=== PATIENT | male | born 1945 | race African-American/Black ===

== ENCOUNTER 2016-11-17 17:14 | Emergency (ER) | payer MEDICARE ==
[2016-11-17 17:37] VITALS: BP 144/82
--- NOTE | 2016-11-17 20:38 | ERNOTE ---
Trauma/Assault HPI - General Stated Complaint: FALL-RT KNEE Time Seen by Provider: 11/17/16 20:26 Source: patient Exam Limitations: no limitations - Immun/Allergies/Home Medications Immunizations: IMMUNIZATION HX Immunizations Up to Date Yes History of Influenza Vaccine Yes Hx Pneumococcal Vaccination Yes Allergies/Adverse Reactions: Allergies lisinopril [From Zestril] Adverse Reaction (Mild, Verified 05/22/16 18:21) COUGH Home Medications: HOME MEDICATIONS Atorvastatin Calcium [Lipitor] 40 mg PO HS 09/28/14 [Last Taken Unknown] Blood Sugar Diagnostic, Drum [Accu-Chek Compact] 1 each MC DAILY 09/28/14 [Last Taken Unknown] Calcitriol [Rocaltrol] 0.5 mcg PO DAILY 09/28/14 [Last Taken Unknown] Cholecalciferol (Vitamin D3) [Vitamin D3] 1,000 unit PO DAILY 09/28/14 [Last Taken Unknown] Clonidine HCl [Catapres] 0.2 mg PO BID 09/28/14 [Last Taken Unknown] DULoxetine HCL [Cymbalta] 30 mg PO BID 09/28/14 [Last Taken Unknown] Fexofenadine HCl [Ashia Allergy] 180 mg PO DAILY 09/28/14 [Last Taken Unknown] Gabapentin [Neurontin] 100 mg PO TID 09/28/14 [Last Taken Unknown] Glipizide [Glucotrol] 10 mg PO DAILY 09/28/14 [Last Taken Unknown] Guaifenesin [Mucinex] 600 mg PO BID PRN 09/28/14 [Last Taken Unknown] Losartan Potassium [Cozaar] 100 mg PO DAILY 09/28/14 [Last Taken Unknown] Metoprolol Tartrate [Lopressor] 25 mg PO BID 09/28/14 [Last Taken 10/08/14 0600] Potassium Chloride [Klor-Con M10] 10 meq PO DAILY 09/28/14 [Last Taken Unknown] amLODIPine BESYLATE [Norvasc] 5 mg PO DAILY 09/28/14 [Last Taken Unknown] Insulin Glargine,Hum.rec.anlog [Lantus] 10 units SQ HS 10/08/14 [Last Taken 05/14] Enoxaparin Sodium [Lovenox] 30 mg SC Q24H #3 disp.syrin 10/17/14 [Last Taken Unknown] Sennosides/Docusate Sodium [Senokot-S] 2 tab PO HS #60 tablet 10/17/14 [Last Taken Unknown] hydrALAZINE HCL [Apresoline] 25 mg PO TID 10/17/14 [Last Taken Unknown] oxyCODONE HCL [Oxycontin] 20 mg PO BID #30 tab.sr.12h 10/17/14 [Last Taken Unknown] oxyCODONE HCL/ACETAMINOPHEN [Percocet 5 MG/325 MG] 2 tab PO Q4H PRN #90 tablet 10/17/14 [Last Taken Unknown] HYDROcodone/ACETAMINOPHEN [[place] 5-325] 1 each PO Q4H PRN #30 tablet 07/11/15 [ Last Taken Unknown] Lidocaine HCl [Lidocaine HCl Viscous 2%] 1 appl TP Q3H PRN #200 ml 05/22/16 [ Last Taken Unknown] - History of Present Illness Narrative: attempted to get in the car an slipped and fell on his right knee. Had shooting pains down his leg initially but has resolved Location Occurred: Reports: street Pain Location: Reports: lower extremity - right knee Method of Injury: Reports: fall Severity: moderate Modifying Factors - (Improves): Reports: immobilization Modifying Factors - (Worsens): Reports: movement Loss of Consciousness: Reports: no loss of consciousness Associated Symptoms - Trauma: Reports: denies symptoms Review of Systems - Review of Systems Constitutional: Present: no symptoms reported EYE: Present: no symptoms reported ENT: Present: no symptoms reported Respiratory: Present: no symptoms reported Cardiology: Present: no symptoms reported Gastrointestinal/Abdominal: Present: no symptoms reported Genitourinary: Present: no symptoms reported Musculoskeletal: Present: See HPI. Absent: back pain, neck pain Skin: Present: no symptoms reported Neurological: Absent: numbness, tingling Endocrine: Present: no symptoms reported Hematologic/Lymphatic: Present: no symptoms reported Psych: Present: no symptoms reported - Patient's Past Medical History Patient History - Medical: Anemia, Chronic Pain, Diabetes Type 2 Insulin Dependent, Migraines, Obesity, Renal Failure Patient History - Cardiac/Respiratory: Hypertension Patient History - Cancer: No Hx of Cancer Patient History - Surgical Procedures: Cardiac stent, Total Knee Replacement, Other - Social History Living Situations: home Smoking Status: Current every day smoker Alcohol Use: none Drug Use: none Physical Exam - Physical Exam General Appearance: Present: wd/wn, alert, mild distress Neck: Present: normal inspection, nontender, supple Respiratory: Present: chest nontender Extremity Exam: Present: other - right knee tender laterally, pain with moderate flexion . Absent: joint redness, joint swelling Neurological Exam: Present: alert, oriented, normal mood/affect, no motor/ sensory deficits Skin Exam: Present: normal color, warm/dry Lymphatic Exam: Present: no adenopathy ED Progress - Results and Orders Patient's Lab Results:: I have reviewed the patient's lab results. Results and Orders: Laboratory Tests 11/17/16 11/17/16 20:46 20:46 WBC 6.7 Hgb 10.9 L Hct 34.0 L MCH 31.8 H RDW 14.1 H Plt Count 168 Sodium 144 H Potassium 4.0 Chloride 105 Carbon Dioxide 30.0 Anion Gap 13.0 BUN 73 H D Creatinine 6.73 H Est GFR (Non-Af Amer) 11 L D BUN/Creatinine Ratio 10.8 Random Glucose 168 H Calcium 10.4 - Vital Signs Patient's Vital Signs:: I have reviewed the patient's vital signs. Vital Signs: Vital Signs 11/17/16 17:31 Temperature 36.7 C Pulse Rate 63 Respiratory 18 Rate Blood Pressure 144/82 O2 Sat by Pulse 94 Oximetry - X-Ray X-Ray #1 X-Ray: hip Interpretation: Interp. by me X-ray Comments: Right: no fracture or dislocation X-Ray #2 X-Ray: knee Interpretation: Interp. by me X-ray Comments: Right: TKA without loosening, fracture or dislocation - Progress/Reassessment Chief Complaint: Fall Progress:: Improved Progress Note-Subjective: 11/17/16 22:20 Discussed worsening renal function with patient. Pt. denies any increasing symptoms and states he contnues to have significant urine output multiple times daily. Pt urinated 200-300 mL in a urinal in the ED tonight. He states he will contact his previous carbon setter and get an appointment Departure Clinical Impression: Chronic kidney disease (CKD) stage G4/A1, severely decreased glomerular filtration rate (GFR) between 15-29 mL/min/1.73 square meter and albuminuria creatinine ratio less than 30 mg/g Right knee sprain Qualifiers: Encounter type: initial encounter Involved ligament of knee: lateral collateral ligament Qualified Code(s): S83.421A - Sprain of lateral collateral ligament of right knee, initial encounter Contusion, hip and thigh Qualifiers: Encounter type: initial encounter Laterality: right Qualified Code(s): S70.01XA - Contusion of right hip, initial encounter - Departure Disposition: Home Follow Up Needed Condition: Fair Instructions: Knee Sprain, [id number], Hip Pointer, [id number] Additional Instructions: Take your pain meds as directed. Speak with Dr. Reyes about further pain meds if you need them. May use ice to sore spots 10-15 minutes at a time 3-4 times a day Referrals: Anneliese Reyes MD [Primary Care Provider] -
[2016-11-17 20:48] LABS: Hemoglobin 10.9 gm/dL (13.5-18.0); Mean Cell Volume 99.1 fl (78-100); Mean Corpuscular Hemoglobin 31.8 pg (27-31); Mean Corpuscular Hgb Conc 32.1 g/dl (32-36); Mean Platelet Volume 8.7 fl (6.0-9.5); Neutrophil # 3.9 K/mm3 (1.3-6.0); Platelet Count 168 K/mm3 (150-450); Red Blood Count 3.43 M/mm3 (4.7-6.0); Red Cell Distribution Width 14.1 % (11.5-14.0); White Blood Count 6.7 K/mm3 (4.0-10.5)
[2016-11-17 20:54] LABS: BUN/Creatinine Ratio 10.8 (9.0-21.6); Calcium * 10.4 mg/dL (7.9-10.9); Estimated Creat Clear 8.8
[2016-11-17] MEDS ORDERED: NORMAL SALINE 500 ML IV ONE (22:18)
[2016-11-17] MEDS ORDERED: HYDROcodone/ACETAMINOPHEN 1 EACH TABLET PO ONE ×2 (22:23→22:24)
[2016-11-17] MEDS ORDERED: HYDROcodone/ACETAMINOPHEN 1 EACH TABLET ONE (22:46)
== END 2016-11-17 23:58 | disposition home or self-care (01) ==
LOC: ER 17:14
DX: S70.01XA Contusion of right hip, initial encounter (principal); S83.421A Sprain of lateral collateral ligament of right knee, initial encounter; N18.4 Chronic kidney disease, stage 4 (severe); F17.210 Nicotine dependence, cigarettes, uncomplicated; Z95.5 Presence of coronary angioplasty implant and graft; Z96.659 Presence of unspecified artificial knee joint; W01.0XXA Fall on same level from slipping, tripping and stumbling without subsequent striking against object, initial encounter; Y92.410 Unspecified street and highway as the place of occurrence of the external cause

== ENCOUNTER 2016-12-22 18:15 | Emergency (ER) | payer MEDICARE ==
--- NOTE | 2016-12-22 20:59 | ERNOTE ---
Neuro HPI ER Record Presenting Symptoms: confusion Time Seen by Provider: 12/22/16 20:10 Source: EMS Exam Limitations: clinical condition, dementia Immunizations: IMMUNIZATION HX Immunizations Up to Date Yes History of Influenza Vaccine Yes Hx Pneumococcal Vaccination Yes Allergies/Adverse Reactions: Allergies Allergy/AdvReac Type Severity Reaction Status Date / Time lisinopril [From Zestril] AdvReac Mild COUGH Verified 05/22/16 18:21 Home Medications: HOME MEDICATIONS Atorvastatin Calcium [Lipitor] 40 mg PO HS 09/28/14 [Last Taken Unknown] Blood Sugar Diagnostic, Drum [Accu-Chek Compact] 1 each MC DAILY 09/28/14 [Last Taken Unknown] Calcitriol [Rocaltrol] 0.5 mcg PO DAILY 09/28/14 [Last Taken Unknown] Clonidine HCl [Catapres] 0.2 mg PO BID 09/28/14 [Last Taken Unknown] DULoxetine HCL [Cymbalta] 30 mg PO BID 09/28/14 [Last Taken Unknown] Gabapentin [Neurontin] 300 mg PO TID 09/28/14 [Last Taken Unknown] Glipizide [Glucotrol] 10 mg PO DAILY 09/28/14 [Last Taken Unknown] Losartan Potassium [Cozaar] 100 mg PO DAILY 09/28/14 [Last Taken Unknown] Metoprolol Tartrate [Lopressor] 25 mg PO BID 09/28/14 [Last Taken 10/08/14 0600] Potassium Chloride [Klor-Con M10] 10 meq PO DAILY 09/28/14 [Last Taken Unknown] amLODIPine BESYLATE [Norvasc] 10 mg PO DAILY 09/28/14 [Last Taken Unknown] Insulin Glargine,Hum.rec.anlog [Lantus] 15 units SQ HS 10/08/14 [Last Taken 05/14] Cholecalciferol [Vitamin D] 5,000 unit PO DAILY 12/22/16 [Last Taken Unknown] Hydrochlorothiazide [Hydrodiuril] 25 mg PO DAILY 12/22/16 [Last Taken Unknown] - History of Present Illness Narrative: Pt has been confused today. He called [facility] and staff there were concerned about his welfare due to his confusion and LE was called to do a welfare check. His son responded that he was fine and if not he would call EMS. Soon after that his son called 911 to have him brought to the ED by EMS. Son did not come to the ED Onset: cannot confirm onset Severity: moderate, severe - Character of Deficits Baseline Cognition: Present: alert, oriented x 4 Baseline Gait: Present: uses a cane/walker Review of Systems - Narrative Narrative: Pt confused and cannot give history, family and a neighbor give some hx - Review of Systems Constitutional: Present: decreased activity level Gastrointestinal/Abdominal: Present: eating less, drinking less - Patient's Past Medical History Patient History - Medical: Anemia, Chronic Pain, Diabetes Type 2 Insulin Dependent, Migraines, Obesity, Renal Failure Patient History - Cardiac/Respiratory: Coronary Heart Disease, Hypertension, Hyperlipidemia Patient History - Cancer: No Hx of Cancer Patient History - Surgical Procedures: Cardiac stent, Total Knee Replacement, Other Patient History - Other: None - Social History Living Situations: home Abuse History: No History of abuse Psych History: No pertinent hx Alcohol Use: none Drug Use: none - Immunizations Immunizations Up to Date: Yes Hx Pneumococcal Vaccination: Yes History of Influenza Vaccine: Yes Physical Exam - Physical Exam General Appearance: Present: wd/wn, lethargic Eye Exam: Normal inspection: bilateral Ears, Nose, Throat: Present: normal ENT inspection Neck: Present: normal inspection Respiratory: Present: no respiratory distress, normal breath sounds, no accessory muscle use, lungs clear Cardiovascular/Chest: Present: regular rate, rhythm, no murmur, normal peripheral pulses Gastrointestinal/Abdominal: Present: normal bowel sounds, nontender, nondistended, soft Back Exam: Present: normal inspection, normal range of motion, no vertebral tenderness Extremity Exam: Present: normal inspection, non-tender, no edema, normal range of motion Neurological Exam: Present: disoriented to person, disoriented to time, disoriented to place, disoriented to situation Skin Exam: Present: normal color, warm/dry Dora Coma Scale - Assess Eye Opening: To Voice Motor: Localizes to Pain Verbal: Inappropriate - Total Coma Scale Total: 11 ED Progress - Results and Orders Patient's Lab Results:: I have reviewed the patient's lab results. Results and Orders: Laboratory Tests 12/22/16 12/22/16 12/22/16 19:20 19:20 22:15 WBC 8.5 Hgb 13.2 L Hct 40.5 L Plt Count 227 Sodium 147 H Potassium 4.3 Chloride 108 H Carbon Dioxide 27.9 Anion Gap 15.4 H BUN 86 H Creatinine 8.75 H D Est GFR (Non-Af Amer) 8 L D Random Glucose 158 H Calcium 12.1 H Total Bilirubin 0.5 AST 103 H ALT 44 Alkaline Phosphatase 60 B-Natriuretic Peptide 2023 H Total Protein 8.3 H Albumin 3.5 Urine Color Yellow Urine Appearance Cloudy Urine pH 6.0 Ur Specific [place] 1.020 Urine Protein 100 H Urine Glucose (UA) Negative Urine Ketones Negative Urine Blood 250 H Urine Nitrate Negative Urine Bilirubin Negative Prot Sulfosalicylic Acd 3+ H Urine Urobilinogen Normal Ur Leukocyte Esterase 25 H Urine RBC 0-5 Urine WBC 0-5 Ur Epithelial Cells None seen Urine Bacteria Trace Urine Culture Comments Culture to follow - Vital Signs Patient's Vital Signs:: I have reviewed the patient's vital signs. - CT/Ultrasound CT/Ultrasound Narrative: CT head: diffuse atrophic changes somewhat advanced for age. No acute bleed, infarct or injury - Progress/Reassessment Progress:: Unchanged Progress Note-Subjective: 12/22/16 22:30 Spoke to the patients son trying to get information from him. He states he does not know anything about his dad's medical conditions or what medications he takes. He is unwilling to come to the ED. If we discharge the patient the son states that we can call his number and someone will come and get him. Soon after this call a neighbor showed up and states that she generally takes care of the patient and makes sure he eats and gets his medications. She states he has not eaten in 4 days 12/23/16 01:10 Spoke with hospitalist Nova CLIFFORD and she feels that the patient will most likely need nephrology and that the patient would be better served at a larger facility. 12/23/16 01:[address] Murillo at the [facility] he agrees to admit the patient Departure Clinical Impression: Uremic encephalopathy - Departure Disposition: [facility] Condition: Serious
--- OUTSIDE RECORDS SUMMARY | 2016-12-22 21:10 | XMS REPORT | Continuity of Care Document ---
:1945 Author Organization [facility] ([facility]) [place] [address] Phone [phone] Care Team Providers Name Role Phone Clif Loyola Primary Care Provider [phone] Source Comments This disclosure is being made pursuant to the Care Everywhere program, applicable federal and state laws, and may not contain all informaitonavailable regarding this patient.[facility] ([facility]) Active Allergies and Adverse Reactions Allergen Noted Date Severity Reactions Comments Lisinopril 07/03/2011 OTHER Cough Current Medications Prescription Sig. Disp. Refills Start Date End Date Status amLODIPine 5 mg tablet Take 1 Tab by mouth 30 Tab 11 07/06/2011 Active daily. Indications: Hypertension furosemide 80 mg Take 1 Tab by mouth 2 60 Tab 11 07/06/2011 Active tablet times daily. Indications: Hypertension hydrALAZINE 50 mg Take 1 Tab by mouth 3 90 Tab 11 07/06/2011 Active tablet times daily. Indications: Hypertension metoPROLol 100 mg Take 0.5 Tabs by 60 Tab 11 07/06/2011 Active tablet mouth every 12 hours. Indications: Hypertension Active Problems Problem Noted Date Anemia 07/04/2011 Acute on chronic renal failure 07/03/2011 DM type 2 (diabetes mellitus, type 2) 07/03/2011 Chronic pain 07/03/2011 Essential hypertension 07/03/2011 Benign neoplasm of adrenal gland 01/20/2006 Pain in joint, lower leg 09/04/2003 Knee joint replacement by other means 02/07/2002 Social History Tobacco Use Types Packs/Day Years Used Date Former Smoker Cigarettes Smokeless Tobacco: Current User Chew Comments:quit smoking in the s after 2-3 years Alcohol Use Drinks/Week oz/Week Comments No quite drinking in the Last Filed Vital Signs Vital Sign Reading Time Taken Blood Pressure 177/81 07/06/2011 8:00 AM CDT Pulse 50 07/06/2011 8:00 AM CDT Temperature 37.1 C (98.8 F) 07/06/2011 8:00 AM CDT Respiratory Rate 20 07/06/2011 8:00 AM CDT Height 1.626 m (5' 4") 07/03/2011 7:00 PM CDT Weight 154.45 kg (340 lb 8 oz) 07/05/2011 9:00 PM CDT Body Mass Index 58.42 07/05/2011 9:00 PM CDT Oxygen Saturation 95% 07/06/2011 8:00 AM CDT Plan of Care Health Maintenance Due Date Last Done Comments HCV Screening 1945 Hepatitis B Vaccine (1 of 3 - Primary Series) 1945 Tdap Vaccine 1958 DIABETIC: Cholesterol 1965 Diabetic: Hdl 1965 Diabetic: Ldl 1965 DIABETIC: Microalbumin 1965 DIABETIC: Triglycerides 1965 Td Vaccine 1963 Colonoscopy 11/19/1997 Prostate Cancer Screening 1997 Zoster Vaccine 2007 DIABETIC: Foot Exam 10/20/2011 DIABETIC: Retinal Eye Exam 10/20/2011 DIABETIC: Hemoglobin A1C 01/02/2012 07/04/2011 Pneumococcal Vaccine (1 of 2 - PCV13) 2012 Influenza Vaccine: Seasonal (#1) 06/01/2016 Results from Last 3 Months Not on file
[2016-12-22 21:15] LABS: Hematocrit 40.5 % (42.0-52.0); Hemoglobin 13.2 gm/dL (13.5-18.0); Mean Cell Volume 98.8 fl (78-100); Mean Corpuscular Hemoglobin 32.2 pg (27-31); Mean Corpuscular Hgb Conc 32.6 g/dl (32-36); Mean Platelet Volume 9.4 fl (6.0-9.5); Neutrophil # 6.1 K/mm3 (1.3-6.0); Neutrophil % 71.1 % (42-75.0); Platelet Count 227 K/mm3 (150-450); Red Cell Distribution Width 14.5 % (11.5-14.0); White Blood Count 8.5 K/mm3 (4.0-10.5)
[2016-12-22 21:16] LABS: Albumin * 3.5 gm/dl (3.4-5.0); Anion Gap 15.4 mmol/L (6.8-13.8); BUN/Creatinine Ratio 9.8 (9.0-21.6); Bilirubin, Total 0.5 mg/dL (0.0-1.1); Ca. Corrected For Albumin 12.2 mg/dL (8.4-10.2); Calcium * 12.1 mg/dL (7.9-10.9); Carbon Dioxide 27.9 mmol/L (24-32.6); Potassium 4.3 mmol/L (3.4-4.6); Total Protein 8.3 gm/dL (6.2-8.2)
[2016-12-22 23:35] LABS: Urine Appearance Cloudy; Urine Bilirubin Negative (NEGATIVE); Urine Blood 250 /ul (NEGATIVE); Urine Color Yellow; Urine Ketone Negative (NEGATIVE); Urine Nitrite Negative (NEGATIVE); Urine Protein 100 mg/dL (NEGATIVE); Urine Urobilinogen Normal (NORMAL)
[2016-12-22 23:36] LABS: Urine Bacteria TRACE; Urine RBC 0-5 /hpf (0-5); Urine WBC 0-5 /hpf (0-5)
[2016-12-23 02:21] VITALS: BP 199/117
== END 2016-12-23 02:10 | disposition short-term general hospital (02) ==
LOC: ER 18:15
PROC: 0T9B70Z Drainage of Bladder with Drainage Device, Via Natural or Artificial Opening (ICD-10-PCS; principal; 2016-12-22)
DX: G93.41 Metabolic encephalopathy (principal); N19 Unspecified kidney failure; E11.9 Type 2 diabetes mellitus without complications; Z79.4 Long term (current) use of insulin; E78.5 Hyperlipidemia, unspecified; Z95.5 Presence of coronary angioplasty implant and graft; I10 Essential (primary) hypertension

== ENCOUNTER 2017-01-01 15:09 | Emergency (ER) | payer MEDICARE ==
[2017-01-01] MEDS ORDERED: ONDANSETRON HCL/PF 2 MG/ML VIAL IV ONE (15:33)
[2017-01-01] MEDS ORDERED: NORMAL SALINE 1,000 ML IV ONE (15:33)
[2017-01-01] MEDS ORDERED: ONDANSETRON HCL/PF 2 MG/ML VIAL ONE (15:59)
[2017-01-01 16:03] LABS: Hematocrit 41.7 % (42.0-52.0); Hemoglobin 13.7 gm/dL (13.5-18.0); Mean Cell Volume 97.2 fl (78-100); Mean Corpuscular Hemoglobin 31.9 pg (27-31); Mean Corpuscular Hgb Conc 32.9 g/dl (32-36); Mean Platelet Volume 10.1 fl (6.0-9.5); Neutrophil # 4.3 K/mm3 (1.3-6.0); Neutrophil % 65.9 % (42-75.0); Platelet Count 213 K/mm3 (150-450); Red Blood Count 4.29 M/mm3 (4.7-6.0); Red Cell Distribution Width 14.5 % (11.5-14.0); White Blood Count 6.5 K/mm3 (4.0-10.5)
--- NOTE | 2017-01-01 16:03 | ERNOTE ---
Medical Problem HPI - Narrative Date of Service: 01/01/17 - General Chief Complaint: Nausea/Vomiting Time Seen by Provider: 01/01/17 15:24 Source: patient Exam Limitations: no limitations - Immun/Allergies/Home Medications Immunizations: IMMUNIZATION HX Immunizations Up to Date Yes History of Influenza Vaccine Yes Hx Pneumococcal Vaccination Yes Allergies/Adverse Reactions: Allergies lisinopril [From Zestril] Adverse Reaction (Mild, Verified 01/01/17 15:20) COUGH Home Medications: HOME MEDICATIONS Atorvastatin Calcium [Lipitor] 40 mg PO HS 09/28/14 [Last Taken Unknown] Blood Sugar Diagnostic, Drum [Accu-Chek Compact] 1 each MC DAILY 09/28/14 [Last Taken Unknown] Clonidine HCl [Catapres] 0.2 mg PO BID 09/28/14 [Last Taken Unknown] DULoxetine HCL [Cymbalta] 30 mg PO BID 09/28/14 [Last Taken Unknown] Glipizide [Glucotrol] 10 mg PO DAILY 09/28/14 [Last Taken Unknown] Metoprolol Tartrate [Lopressor] 25 mg PO BID 09/28/14 [Last Taken 10/08/14 0600] amLODIPine BESYLATE [Norvasc] 10 mg PO DAILY 09/28/14 [Last Taken Unknown] Insulin Glargine,Hum.rec.anlog [Lantus] 15 units SQ HS 10/08/14 [Last Taken 05/14] Cholecalciferol [Vitamin D] 5,000 unit PO DAILY 12/22/16 [Last Taken Unknown] Hydrochlorothiazide [Hydrodiuril] 25 mg PO DAILY 12/22/16 [Last Taken Unknown] Ciprofloxacin HCl [Cipro] 250 mg PO BID 01/01/17 [Last Taken Unknown] - History of Present History Narrative: Pt. comes in with c/o suprapubic pain and nausea since he was discharged from [facility] 2 days ago. Pt. was seen and treated for acute renal failure secondary to UTI at [facility] from 12/22. Pt. denies the ability to eat and his BG have been in the 70s although he is able to tolerate oral fluid. Pt. denies any vomiting, diarrhea, constipation, alleviating factors, or aggravating factors. Review of Systems - Review of Systems Constitutional: Present: fatigue, malaise. Absent: fever, chills, weakness EYE: Present: no symptoms reported ENT: Present: no symptoms reported Respiratory: Present: no symptoms reported. Absent: shortness of breath, cough , wheezing Cardiology: Present: no symptoms reported. Absent: chest pain, palpitations, edema Gastrointestinal/Abdominal: Present: nausea, abdominal pain - suprapubic. Absent: vomiting, diarrhea Genitourinary: Present: no symptoms reported Musculoskeletal: Present: no symptoms reported. Absent: back pain, joint pain Skin: Present: no symptoms reported. Absent: rash, change in color Neurological: Present: no symptoms reported. Absent: headache, dizziness/light- headedness, numbness, tingling All Other Systems: All systems neg except as marked - Patient's Past Medical History Patient History - Medical: Anemia, Chronic Pain, Diabetes Type 2 Insulin Dependent, Migraines, Obesity, Renal Failure Patient History - Cardiac/Respiratory: Coronary Heart Disease, Hypertension, Hyperlipidemia Patient History - Cancer: No Hx of Cancer Patient History - Surgical Procedures: Cardiac stent, Total Knee Replacement, Other Patient History - Other: None - Social History Living Situations: home Abuse History: No History of abuse Psych History: No pertinent hx Alcohol Use: none Drug Use: none - Immunizations Immunizations Up to Date: Yes Hx Pneumococcal Vaccination: Yes History of Influenza Vaccine: Yes Physical Exam - Physical Exam General Appearance: Present: wd/wn, alert, no apparent distress Eye Exam: Normal inspection: bilateral, PERRL: bilateral, EOMI: bilateral Ears, Nose, Throat: Present: normal ENT inspection Neck: Present: normal inspection, nontender. Absent: lymphadenopathy (R), lymphadenopathy (L) Respiratory: Present: no respiratory distress, normal breath sounds, no accessory muscle use, chest nontender, lungs clear Cardiovascular/Chest: Present: regular rate, rhythm, no murmur, normal peripheral pulses Gastrointestinal/Abdominal: Present: normal bowel sounds, nondistended, soft, no organomegaly, tenderness - suprapubic Back Exam: Present: normal inspection, no CVA tenderness Extremity Exam: Present: normal inspection, non-tender, normal range of motion, no edema Neurological Exam: Present: alert, oriented, normal mood/affect, no motor/ sensory deficits Skin Exam: Present: normal color, warm/dry, other - excoriation of trach stoma 4 oclock to 7 oclock partial thickness ED Progress - Date and Time Seen: Date and Time: 01/01/17 18:[address] Hollis and she recommends transfer to [facility] for endocrinology, nephrology, and gastroenterology. Discussed case with Dr Sainz at [facility] and she accepts pt. - Results and Orders Patient's Lab Results:: I have reviewed the patient's lab results. - Vital Signs Patient's Vital Signs:: I have reviewed the patient's vital signs. Vital Signs: Vital Signs 01/01/17 15:14 Temperature 35.7 C L Pulse Rate 66 Respiratory 12 Rate Blood Pressure 190/112 O2 Sat by Pulse 99 Oximetry - Progress/Reassessment Chief Complaint: Nausea/Vomiting Departure - Departure Clinical Impression: Chronic kidney disease (CKD) stage G4/A1, severely decreased glomerular filtration rate (GFR) between 15-29 mL/min/1.73 square meter and albuminuria creatinine ratio less than 30 mg/g, Dehydration, Hypoglycemia Acute pancreatitis Qualifiers: Pancreatitis type: unspecified pancreatitis type Acute pancreatitis complication: no infection or necrosis Qualified Code(s): K85.90 - Acute pancreatitis without necrosis or infection, unspecified Disposition: [facility] Condition: Serious
[2017-01-01 16:26] LABS: Albumin * 3.8 gm/dl (3.4-5.0); Anion Gap 19.1 mmol/L (6.8-13.8); BUN/Creatinine Ratio 9.7 (9.0-21.6); Bilirubin, Total 0.5 mg/dL (0.0-1.1); Ca. Corrected For Albumin 10.5 mg/dL (8.4-10.2); Calcium * 10.7 mg/dL (7.9-10.9); Carbon Dioxide 21.8 mmol/L (24-32.6); Potassium 4.9 mmol/L (3.4-4.6); Total Protein 8.3 gm/dL (6.2-8.2)
--- OUTSIDE RECORDS SUMMARY | 2017-01-01 17:02 | XMS REPORT | Continuity of Care Document ---
:1945 Author Organization [facility] ([facility]) [place] [address] Phone [phone] Care Team Providers Name Role Phone Anneliese Reyse Primary Care Provider [phone] Source Comments This disclosure is being made pursuant to the Care Everywhere program, applicable federal and state laws, and may not contain all informaitonavailable regarding this patient.[facility] ([facility]) Active Allergies and Adverse Reactions Allergen Noted Date Severity Reactions Comments Lisinopril 07/03/2011 OTHER Cough Current Medications Prescription Sig. Disp. Refills Start End Status Date Date amLODIPine 10 mg tablet Take 10 mg by Active mouth daily. atorvastatin 40 mg Take 40 mg by Active tablet mouth daily. cloNIDine HCl 0.2 mg Take 0.2 mg by Active tablet mouth 2 times daily. DULoxetine 30 mg XR Take 30 mg by Active capsule mouth 2 times daily. glipiZIDE 10 mg tablet Take 10 mg by Active mouth daily. hydroCHLOROthiazide 25 Take 25 mg by Active mg tablet mouth daily. metoPROLol tartrate 25 Take 25 mg by Active mg tablet mouth 2 times daily. cholecalciferol Take 5,000 Units Active (VITAMIN D3) 5,000 unit by mouth daily. capsule ciprofloxacin HCl 250 Take 1 tablet 2 tablet 0 Active mg tablet (250 mg total) 7 017 by mouth daily for 2 days. amLODIPine 5 mg tablet Take 1 Tab by 30 Tab 11 Discontinued mouth daily. 1 017 Indications: Hypertension furosemide 80 mg tablet Take 1 Tab by 60 Tab 11 Discontinued mouth 2 times 1 017 daily. Indications: Hypertension hydrALAZINE 50 mg Take 1 Tab by 90 Tab 11 Discontinued tablet mouth 3 times 1 017 daily. Indications: Hypertension metoPROLol 100 mg Take 0.5 Tabs by 60 Tab 11 Discontinued tablet mouth every 12 1 017 hours. Indications: Hypertension calcitriol 0.5 mcg Take 0.5 mcg by Discontinued capsule mouth daily. 017 gabapentin 300 mg Take 900 mg by Discontinued capsule mouth 3 times 017 daily. potassium chloride 10 Take 10 mEq by Discontinued mEq XR tablet mouth daily. 017 losartan 100 mg tablet Take 100 mg by Discontinued mouth daily. 017 HYDROcodone-acetaminoph Take 1 tablet by Discontinued en 5-325 mg per tablet mouth every 8 017 hours as needed. Active Problems Problem Noted Date Metabolic encephalopathy 12/24/2016 Hypercalcemia 12/24/2016 Rhabdomyolysis 12/24/2016 Delirium due to medical condition without behavioral disturbance 12/23/2016 Morbid obesity 12/23/2016 Anemia 07/04/2011 Acute on chronic renal failure 07/03/2011 DM type 2 (diabetes mellitus, type 2) 07/03/2011 Chronic pain 07/03/2011 Essential hypertension 07/03/2011 Benign neoplasm of adrenal gland 01/20/2006 Pain in joint, lower leg 09/04/2003 Knee joint replacement by other means 02/07/2002 Most Recent Encounters Date Type Specialty Providers Description 12/30/2016 Pharmacy Visit 12/25/2016 Hospital Encounter Neurology Chris Guzman, Dx: Delirium PHD (Primary Dx) 12/23/2016 - Hospital Encounter General Care Catina Murillo Dx: Delirium due to 12/30/2016 Inpatient - Adult MD Edi medical condition Margaret Stewart without behavioral Maris MD disturbance Tito Partida, (Primary Dx) Social History Tobacco Use Types Packs/Day Years Used Date Former Smoker Cigarettes Smokeless Tobacco: Current User Chew Comments:quit smoking in the 1959's after 2-3 years Alcohol Use Drinks/Week oz/Week Comments No quite drinking in the s Last Filed Vital Signs Vital Sign Reading Time Taken Blood Pressure 148/69 12/30/2016 8:00 AM SALVAGE REPAIRER Pulse 52 12/30/2016 8:00 AM SALVAGE REPAIRER Temperature 35.8 C (96.4 F) 12/30/2016 8:00 AM SALVAGE REPAIRER Respiratory Rate 18 12/30/2016 8:00 AM SALVAGE REPAIRER Height 1.626 m (5' 4") 12/26/2016 3:55 PM SALVAGE REPAIRER Weight 138.3 kg (304 lb 14.3 oz) 12/26/2016 3:55 PM SALVAGE REPAIRER Body Mass Index 52.31 12/26/2016 3:55 PM SALVAGE REPAIRER Oxygen Saturation 97% 12/30/2016 8:00 AM SALVAGE REPAIRER Plan of Care Health Maintenance Due Date [...] (#1) 06/01/2016 Results from Last 3 Months BLOOD GLUCOSE, BEDSIDE (12/30/2016 8:43 AM)Only the most recent of22 resultswithin the time period is included. Component Value Range Glucose, Accu-Chek 100(H) 65-99 mg/dL Specimen Blood, capillary BASIC METABOLIC PANEL W/ CALCIUM (CHEM 8) (12/30/2016 6:41 AM)Only the most recent of7 resultswithin the time period is included. Component Value Range Sodium 140 135-145 mEq/L Potassium 4.4 3.5-5.0 mEq/L Chloride 108(H) 95-107 mEq/L CO2 19(L) 22-29 mEq/L Anion Gap 13 8-18 mEq/L BUN 63(H) 10-20 mg/dL Creatinine 6.3(H)Comment: 0.6-1.2 mg/dL Creatinine switched to enzymatic method on 03/10/2011.GFR equation switched to IDMS-traceable MDRD equation on 03/10/2011. Calculated GFR values are not valid in clinical settings where serum creatinine is changing. Glucose 119(H)Comment: 65-99 mg/dL The Expert Committee on the Diagnosis and Classification of Diabetes has defined impaired fasting glucose as greater than or equal to 100 mg/dL but less than 126 mg/dL.(Diabetes Care 28 (Suppl 1)S41,2005) Calcium 9.4 8.5-10.5 mg/dL Calculated GFR 11(L) >60 mL/min/1.73 m2 Specimen Blood PHOSPHORUS (12/30/2016 6:41 AM)Only the most recent of8 resultswithin the time period is included. Component Value Range Phosphorus 4.3Comment:New reference range installed 08/13/15. 2.5-4.5 mg/dL Specimen Blood [facility] NEUROPSYCHOLOGY CONSULT - COGNITIVE ASSESSMENT (12/28/2016 3:04 PM) Narrative Chris Guzman, PHD 12/28/20163:04 PM NEUROPSYCHOLOGY CONSULT NOTE REASON FOR REQUEST:71 year old male admitted with altered mental status after a new opiate prescription found to be in bed without eating or drinking for 3-4 days, with URMILA on CKD. Improving medically.We believe mental status is now close to baseline and does well with orientation questions and appropriate communication.However, MOCA today was 12.Specifically did very poorly on attention, abstraction, delayed recall.Has previously had a head CT that showed atrophy but no specific neurocognitive diagnosis.Lives with son who is not very reliable. REQUESTED BY:Margaret Luke MD DATE OF SERVICE:12/25/2016 IDENTIFYING INFORMATION Bob Hoang is a 71-year-old, right-handed (+100) man with 8 years of formal education.We evaluated him at [facility]. Testing was started on 12/25/16, and completed today, 12/28/16. BACKGROUND INFORMATION Mr. Hoang is referred for neuropsychological evaluation pursuant to questions about his mental status, and whether he is back to baseline, as per the above summary from Dr. Andrews.Mr. Hoang has a significant medical history and many medical comorbidities.He had impaired mentation coming [facility] for the current hospitalization, but has shown some improvement. Recent MoCA testing was 12 (very impaired), however.He has been alert and oriented. Mr. Hoang has a limited baseline, estimated to be low average (approximately 16th percentile per our testing).He has limited formal schooling.He has a limited socioeconomic status, and, as noted, multiple major medical problems. 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 SUICIDE RISK SCREENING None indicated. IMPRESSIONS Neuropsychological examination indicates moderate to severe impairments in most formal aspects of cognitive functioning.He is reasonably well oriented, conversant, and not confused. However, his performances on tests of memory, reasoning, decision-making, and problem-solving were very impaired. Processing speed was very impaired.He had limited stamina and limited sustained attention.He did not report significant depression.The findings suggest widespread cognitive dysfunction, secondary to a recovering delirium and/or baseline dementia. RECOMMENDATIONS (1)Mr. Hoang is not deemed capable of managing his own daily living activities independently.He needs 24/ assistance.He should not be allowed to make independent decisions about his care and well-being. (2) It appears that the living situation is not optimal, with some questions about the reliability of the son.Close monitoring and supervision from social support services are strongly recommended. (3) Neuropsychological re-evaluation as an outpatient, when his medical condition has stabilized, will help better establish his baseline abilities and address his capacity for independent living. Chris Guzman, PhD, ABPP/Cn Professor MACHINE APPLICATOR CEMENTER TIME, FACE TO FACE (COGNITIVE TESTING) 2 hours NEUROPSYCHOLOGIST TIME (COGNITIVE ASSESSMENT) 2 hours (Record review, interview, interpreting and integrating findings, providing feedback & counseling, and preparing written report) MAGNESIUM (12/26/2016 6:52 AM)Only the most recent of4 resultswithin the time period is included. Component Value Range Magnesium 2.7 1.5-2.9 mg/dL Specimen Blood CREATINE KINASE (12/25/2016 7:24 AM)Only the most recent of3 resultswithin the time period is included. Component Value Range Creatine Kinase 479(H) 39-308 U/L Specimen Blood CBC (COMPLETE BLOOD COUNT) (12/25/2016 7:24 AM) Component Value Range WBC Count 7.2 3.7-10.5 K/MM3 RBC Count 3.43(L) 4.50-6.20 M/MM3 Hemoglobin 11.2(L) 13.2-17.7 g/dL Hematocrit 35(L) 40-52 % MCV (Mean Corpuscular Volume) 101(H) 82-99 FL MCH (Mean Corpuscular Hemoglobin) 33 25-35 PG MCHC (Mean Corpuscular Hemoglobin Concentration) 33 32-36 % Platelet Count 167 150-400 K/MM3 MPV (Mean Platelet Volume) 10.1 9.4-12.3 FL RBC Dist Width-STD 52.3(H) 35.1-43.9 FL RBC Distrib Width 14.4 9.0-14.5 % Nucleated RBC 0 /100 WBC Specimen Whole Blood US RETROPERITONEAL COMPLETE (12/24/2016 4:48 PM) Impressions Impression: 1. Non-obstructive stones in the right upper and lower pole. 2. Right mid pole simple cyst. 3. Otherwise normal renal grayscale ultrasound. --- Final --- Narrative [facility] Department of Radiology Ultrasound Division [address] [place] [address] ULTRASOUND REPORT NAME:BOB HOANG Date of Service: 12/24/2016 MRN NO.: [id number] Date: 12/25/2016 Patient's : 1945 Resident/Tech: [id number] Josesito Guerrero Patient's Age: 71 yearsReferring MD:CATINA ANDREWS Indication: URMILA on CKD, evaluate intrinsic renal disease Acute on chronic renal failure. Technique: Renal and bladder grayscale ultrasound. Findings: Kidney: Two non obstructing stones within the right kidney. One is in the superior pole and the other is in the inferior pole. + + + + + :Structure :Features:Right : Left : + + + + + :Kidney:Present/Absent:Present :Present : + + + + + ::Size (cm) :8.7 x 5.1 x 4.0 :9.7 x 4.5 x 4.8 : + + + + + ::Location:Normal: Normal : + + + + + ::Shape :Normal:Normal: + + + + + :Cortex:Echogenicity:Normal:Normal : + + + + + :Renal Pelvis::No hydronephrosis.:No hydronephrosis.: + + + + + ::: :: + + + + + :Ureters ::Normal. :Normal. : + + + + + + + + + + -+ :Right Kidney:Location:Size (cm):Echogenicity:Characteristics : + + + + + -+ :Lesion 1:right mid to:.8 x .7 x:cyst: : ::lower pole:.8 :: : + + + + + -+ :Lesion 2:right upper pole: :hyperechoic :with posterior : ::: ::shadowing : + + + + + -+ :Lesion 3:right lower pole: :hyperechoic :with posterior : ::: ::shadowing : + + + + + -+ Urinary Bladder: Pt. voided prior to exam. Procedure Note Selvin, Incoming Imaging Results - WedDec 25, 2016 10:52 AM SALVAGE REPAIRER [facility] Department of Radiology Ultrasound Division [address] [place] [address] ULTRASOUND REPORT NAME: BOB HOANG Date of Service: 12/24/2016 MRN NO.: [id number] Review Date: 12/25/2016 Patient's : 1945 Resident/Tech: [id number] Josesito Guerrero Patient's Age: 71 years Referring MD: CATINA ANDREWS Indication: URMILA on CKD, evaluate intrinsic renal disease Acute on chronic renal failure. Technique: Renal and bladder grayscale ultrasound. Findings: Kidney: Two non obstructing stones within the right kidney. One is in the superior pole and the other is in the inferior pole. + + + + + :Structure :Features : Right : Left : + + + + + :Kidney :Present/Absent:Present :Present : + + + + + : :Size (cm) :8.7 x 5.1 x 4.0 :9.7 x 4.5 x 4.8 : + + + + + : :Location :Normal :Normal : + + + + + : :Shape :Normal :Normal : + + + + + :Cortex :Echogenicity :Normal :Normal : + + + + + :Renal Pelvis: :No hydronephrosis.:No hydronephrosis.: + + + + + : : : : : + + + + + :Ureters : :Normal. :Normal. : + + + + + + + + + + -+ :Right Kidney:Location :Size (cm) :Echogenicity:Characteristics : + + + + + -+ :Lesion 1 :right mid to :.8 x .7 x :cyst : : : :lower pole :.8 : : : + + + + + -+ :Lesion 2 :right upper pole: :hyperechoic :with posterior : : : : : :shadowing : + + + + + -+ :Lesion 3 :right lower pole: :hyperechoic :with posterior : : : : : :shadowing : + + + + + -+ Urinary Bladder: Pt. voided prior to exam. IMPRESSION Impression: 1. Non-obstructive stones in the right upper and lower pole. 2. Right mid pole simple cyst. 3. Otherwise normal renal grayscale ultrasound. --- Final --- ALBUMIN (12/24/2016 6:46 AM) Component Value Range Albumin 3.4 3.4-4.8 g/dL Specimen Blood PROTEIN-URINE,RANDOM (12/23/2016 6:29 PM) Component Value Range Total Protein, Urine, Random 240 mg/dL Specimen Urine PROTEIN-URINE,ELECTROPHOR-RAND (12/23/2016 6:29 PM) Component Value Range UPEP, Total Protein 240 mg/dL UPEP, Monoclonal Concentration 0.0 mg/dL UPEP, Path Interpretation See TextComment: A monoclonal protein is not identified by urine protein electrophoresis. The specimen is a random urine. Bindu Nichols M.D., R1 Pathology Resident I have personally reviewed the patient studies and I agree with the above report. Qasim Mcrae M.D, Ph.D., Data Center Architect, Clinical Chemistry Laboratory, [facility] Specimen Urine ABDOMEN AP SUPINE (12/23/2016 11:03 AM) Impressions Impression: 1. Paucity of bowel gas throughout the abdomen and pelvis. No dilated air-filled loops of bowel are visualized. 2. Postoperative changes involving the right kidney. 3. Previous right lateral abdominal wall hernia not well evaluated on this current plain film. Narrative Procedure:ABDOMEN AP SUPINE Clinical Indication: Abdominal pain and hypercalcemia. Please evaluate for obstruction or ileus. Technique: 2 portable supine radiograph(s) of the abdomen. Comparison: External CT abdomen and pelvis 02/25/2006. Findings: Lung bases are clear. There is a paucity of bowel gas throughout the abdomen and pelvis. Surgical clips in the right upper quadrant/postsurgical changes are stable related to the right kidney as seen on prior CT of 2005. Previous right lateral abdominal wall hernia on prior CT not fully evaluated on this current abdominal radiograph. Vascular calcifications in the vas deferens and seminal vesicles. Limited evaluation for free air on these supine views. Degenerative changes throughout the lumbar spine. Procedure Note Selvin, Incoming Imaging Results - WedDec 23, 2016 12:12 PM SALVAGE REPAIRER Procedure: ABDOMEN AP SUPINE Clinical Indication: Abdominal pain and hypercalcemia. Please evaluate for obstruction or ileus. Technique: 2 portable supine radiograph(s) of the abdomen. Comparison: External CT abdomen and pelvis 02/25/2006. Findings: Lung bases are clear. There is a paucity of bowel gas throughout the abdomen and pelvis. Surgical clips in the right upper quadrant/postsurgical changes are stable related to the right kidney as seen on prior CT of 2005. Previous right lateral abdominal wall hernia on prior CT not fully evaluated on this current abdominal radiograph. Vascular calcifications in the vas deferens and seminal vesicles. Limited evaluation for free air on these supine views. Degenerative changes throughout the lumbar spine. IMPRESSION Impression: 1. Paucity of bowel gas throughout the abdomen and pelvis. No dilated air-filled loops of bowel are visualized. 2. Postoperative changes involving the right kidney. 3. Previous right lateral abdominal wall hernia not well evaluated on this current plain film. KAPPA LAMBDA LIGHT CHAIN URINE (12/23/2016 10:39 AM) Component Value Range K/L Albumin, Urine Detected Detected K/L Alpha-1, Urine Detected None Detected K/L Alpha-2, Urine Detected None Detected K/L Beta, Urine Detected None Detected K/L Gamma, Urine Detected None Detected K/L Urine-Protein, Total See NoteComment: 10-140 mg/d Total Jzjrycr=798.9 mg/dL based on random urine. INTERPRETIVE INFORMATION: Total Protein Total urinary protein is determined nephelometrically by adding the albumin and Nicholls and/or Lambda light chains. This value may not agree with the total protein as determined by chemical methods, which characteristically underestimate urinary light chains. K/L Nicholls, Urine 79.90(H) 0.14-2.42 mg/dL K/L Lambda, Urine 13.00(H) 0.02-0.67 mg/dL K/L JANNETTE Interpretation, Urine See NoteComment: Urine JANNETTE shows a polyclonal increase in free kappa and/or free lambda light chains. No monoclonal free light chains (Bence Saunders Protein) are detected. Free Urinary K/L Ratio 6.15Comment: 2.04-10.37 ratio Performed by [employer], [address] [place] [id number] [email or web address], Arvind Casas MD, Lab. Director Hours Collected Random hr Total Volume Random mL K/L Nicholls Excretion/Day, Urine See NoteComment: mg/d Unable to quantitate free light chain excretion per day on a random urine sample. K/L Lambda Excretion/Day, See NoteComment: mg/d Urine Unable to quantitate free light chain excretion per day on a random urine sample. Specimen Urine Narrative Specimen Source: Specimen Start Date: TOTAL PROTEIN (12/23/2016 10:37 AM) Component Value Range Total Protein 7.5 6.0-8.0 g/dL Specimen Blood LACTIC ACID, WHOLE BLOOD ([facility]) (12/23/2016 10:37 AM)Only the most recent of2 resultswithin the time period is included. Component Value Range Lactic Acid, Whole Blood 1.6Comment: 0.5-2.0 mEq/L Glycolate, the principle toxic metabolite of ethylene glycol, can cause artifactual elevation of measured lactate. Specimen Whole Blood CALCIUM, IONIZED ([facility]) (12/23/2016 10:37 AM) Component Value Range Ionized Calcium 5.8(H) 3.8-5.2 mg/dL Specimen Whole Blood VENOUS BLOOD GAS ([facility]) (12/23/2016 10:37 AM) Component Value Range pH, Venous 7.37 7.33-7.43 pCO2, Venous 42 37-50 torr pO2, Venous 38 37-47 torr Base Excess, Venous -1 -2-2 mEq/L Bicarbonate, Venous 24 22-26 mEq/L Total CO2, Venous 25 24-32 mEq/L Temperature, Venous 37.0 Degrees C Specimen Whole Blood SERUM PROTEIN ELECTROPHORESIS (12/23/2016 10:37 AM) Component Value Range SPEP-Total Protein 7.5 6.0-8.0 g/dL SPEP-Albumin 3.6(L) 4.2-5.2 g/dL SPEP-Alpha1 Fraction 0.4 0.3-0.5 g/dL SPEP-Alpha2 Fraction 0.9(H) 0.3-0.6 g/dL SPEP-Beta1 Fraction 0.4 g/dL SPEP-Beta2 Fraction 0.5 g/dL SPEP-Beta Fraction Total 0.9 0.6-1.0 g/dL SPEP-Gamma Fraction 1.7(H) 0.5-1.3 g/dL SPEP-Monoclonal Protein 0.0 g/dL SPEP-Path Interp See TextComment: A monoclonal protein is not identified by serum protein electrophoresis. The alpha 2 fraction is elevated and may represent increased acute phase reactants. Polyclonal hypergammaglobulinemia is also present. Bindu Nichols M.D., R1 Pathology Resident I have personally reviewed the patient studies and I agree with the above report. Qasim Mcrae M.D, Ph.D., Data Center Architect, Clinical Chemistry Laboratory, [facility] Questions can be directed to the Pathology Chemistry resident (pager #[phone]) Specimen Blood ECG - EKG 12 LEAD (12/23/2016 8:43 AM) Component Value Range ECG SEVERITY - ABNORMAL ECG - VENT. RATE 100 bpm RR 600 ms P-R INTERVAL 184 ms QRSD INTERVAL 82 ms QT INTERVAL 344 ms QTC INTERVAL 444 ms P AXIS 74 degrees QRS AXIS -6 degrees T WAVE AXIS 165 degrees REPORT SINUS TACHYCARDIA PROBABLE LVH W/ SECONDARY REPOL ABNORMALITIES CONSIDER RIGHT ATRIAL ENLARGEMENT No prior tracing available for comparison Interpreting Physician: Catina Vallejo MD CHEST - AP/PA (12/23/2016 8:20 AM) Impressions Findings / Impression: Tracheostomy in appropriate position. Otherwise the portable exam is grossly within normal limits. No acute cardiopulmonary or pleural findings. The mild prominence of the cardia mediastinal silhouette is likely from the portable nature of the study. The minimal blunting of the right CP angle is likely from atelectasis. Narrative Procedure: CHEST - AP/PA Technique: Portable AP chest radiograph Comparison: Chest radiograph(s) dated: July 03, 2011. Clinical Indication: Altered mental status. Procedure Note Selvin, Incoming Imaging Results - WedDec 23, 2016 10:46 AM SALVAGE REPAIRER Procedure: CHEST - AP/PA Technique: Portable AP chest radiograph Comparison: Chest radiograph(s) dated: July 03, 2011. Clinical Indication: Altered mental status. IMPRESSION Findings / Impression: Tracheostomy in appropriate position. Otherwise the portable exam is grossly within normal limits. No acute cardiopulmonary or pleural findings. The mild prominence of the cardia mediastinal silhouette is likely from the portable nature of the study. The minimal blunting of the right CP angle is likely from atelectasis. DIFFERENTIAL (12/23/2016 5:03 AM) Component Value Range % Neutrophils-Auto Diff 66.9 % Neutrophils-Auto Diff 6050 1193-4580 /MM3 % Lymphocytes-Auto Diff 22.1 % Lymphocytes-Auto Diff 2000 875-3300 /MM3 % Monocytes-Auto Diff 9.7 % Monocytes-Auto Diff 880(H) 130-860 /MM3 % Eosinophils-Auto Diff 0.9 % Eosinophils-Auto Diff 80 40-390 /MM3 % Basophils 0.1 % Basophils-Auto Diff 10 10-136 /MM3 % Immature Granulocytes-Auto Diff 0.3 % Immature Granulocytes-Auto Diff 30 /MM3 Specimen Whole Blood CBC (COMPLETE BLOOD COUNT) (12/23/2016 5:03 AM) Component Value Range WBC Count 9.1 3.7-10.5 K/MM3 RBC Count 4.01(L) 4.50-6.20 M/MM3 Hemoglobin 12.8(L) 13.2-17.7 g/dL Hematocrit 40 40-52 % MCV (Mean Corpuscular Volume) 99 82-99 FL MCH (Mean Corpuscular Hemoglobin) 32 25-35 PG MCHC (Mean Corpuscular Hemoglobin Concentration) 32 32-36 % Platelet Count 209 150-400 K/MM3 MPV (Mean Platelet Volume) 9.9 9.4-12.3 FL RBC Dist Width-STD 52.3(H) 35.1-43.9 FL RBC Distrib Width 14.6(H) 9.0-14.5 % Nucleated RBC 0 /100 WBC Specimen Whole Blood PARATHYROID HORMONE (12/23/2016 5:03 AM) Component Value Range PTH 39.4 10.0-65.0 pg/mL Specimen Whole Blood ETHANOL VOLATILE PANEL (12/23/2016 5:03 AM) Component Value Range Sodium 144 135-145 mEq/L Glucose 130(H)Comment: 65-99 mg/dL The Expert Committee on the Diagnosis and Classification of Diabetes has defined impaired fasting glucose as greater than or equal to 100 mg/dL but less than 126 mg/dL.(Diabetes Care 28 (Suppl 1)S41,2005) BUN 84(H) 10-20 mg/dL Calculated Osmolality 326(H) 50-300 mOsm/kg Osmolality Gap 2 <15 mOsm/kg Unexplained Osmolality Gap 2Comment: <15 mOsm/kg The osmol gap is the measured plasma osmolality minus the calculated osmolality estimated using sodium, BUN, and glucose. The 'unexplained gap' provides a further correction for the presence of ethano l (if present) in the patient?s plasma. An elevated unexplained osmol gap > 15 can occur due to the presence of ethylene glycol, methanol, isopropanol, propylene glycol (found in activated charcoal and some intravenous medications), acetone, or mannitol. All samples that have an unexplained gap >15 are additionally tested for ethylene glycol by immunoassay.Elevated unexplained gaps can al so be seen in patients withdrawing from heavy ethanol use who have ketoacidosis and/or significant amounts of ethanol metabolites in the plasma. Ethanol 0Comment: mg/dL Reference range: None detected. Ethanol intoxication typically begins in the 50-100 mg/dL range. Critical value: >300 mg/dL. Ethanol values less than 10 mg/dL cannot be distinguished from zero. Osmolality, Plasma 328(H) 280-300 mOsm/kg Specimen Blood THYROID STIMULATING HORMONE (TSH), WITH REFLEX FREE T-4 (12/23/2016 5:03 AM) Component Value Range TSH, Reflex 1.87 0.27-4.20 IU/mL Specimen Blood VITAMIN D, 25-HYDROXY (12/23/2016 5:03 AM) Component Value Range Vitamin D, 25-OH 52Comment: 20-80 ng/mL This assay accurately quantifies the sum of 25-hydroxyvitamin D3 and 25- hydroxyvitamin D2. Endocrine Society, [place] [employer] (IOM), and World Health Organization (WHO) guidelines designate 25-h ydroxyvitamin D plasma concentrations below 20 ng/mL as deficient, based on increased frequency of adverse outcomes (e.g., osteoporotic fractures). 25-Hydroxyvitamin D reference ranges are a controversial topic, with some authorities suggesting optimal concentrations should be 30 ng/mL or higher based on correlations of 25-hydroxyvitamin D plasma concentrations with physiological parameters such as parathyroid hormone or calcium concentrations. However, optimal 25-hydroxyvitamin D concentrations greater than 20 ng/mL may be considered for specific disease conditions. Vitamin D toxicity is uncommon but may be seen at 25-hydroxyvitamin D concentrations greater than 150 ng/mL. Specimen Blood CBC WITH DIFFERENTIAL (12/23/2016 5:03 AM) Specimen Whole Blood Narrative The following orders were created for panel order CBC WITH DIFFERENTIAL. Procedure Abnormality Status --------- ------ CBC (COMPLETE BLOOD COUNT)[[id number]] AbnormalFinal result DIFFERENTIAL[[id number]] AbnormalFinal result Please view results for these tests on the individual orders. CALCIUM (12/23/2016 5:03 AM) Component Value Range Calcium 11.8(H) 8.5-10.5 mg/dL Specimen Blood CHEM 7 PANEL (12/23/2016 5:03 AM) Component Value Range Sodium 144 135-145 mEq/L Chloride 103 95-107 mEq/L Potassium 4.1 3.5-5.0 mEq/L CO2 24 22-29 mEq/L BUN 84(H) 10-20 mg/dL Creatinine 8.5(H)Comment: 0.6-1.2 mg/dL Creatinine switched to enzymatic method on 03/10/2011.GFR equation switched to IDMS-traceable MDRD equation on 03/10/2011. Calculated GFR values are not valid in clinical settings where serum creatinine is changing. Glucose 130(H)Comment: 65-99 mg/dL The Expert Committee on the Diagnosis and Classification of Diabetes has defined impaired fasting glucose as greater than or equal to 100 mg/dL but less than 126 mg/dL.(Diabetes Care 28 (Suppl 1)S41,2005) Anion Gap 17 8-18 mEq/L Calculated GFR 8(L) >60 mL/min/1.73 m2 Specimen Blood DRUGS OF ABUSE - URINE (12/23/2016 5:02 AM) Component Value Range Amphetamines, Urine NegativeComment: Negative Test cut-off: 1000 ng/mL for d-methamphetamine. Benzodiazepine, Urine NegativeComment: Negative Test cut-off:100 ng/mL Cocaine, Urine NegativeComment: Negative Test cut-off:300 ng/mL Opiate, Urine Presumptive Positive(A)Comment: Negative Test cut-off:300 ng/mL for morphine Oxycodone, Urine NegativeComment: Negative Test cut-off:300 ng/mL Amphetamines assay cross-reacts well with amphetamine and methamphetamine, as well as the "associate designer" amphetamines MDMA ("Ecstasy"), MDA, MDEA ("Lina"), and MBDB. Labetalol may also produce false positi ves due to cross-reactivity of a metabolite.The amphetamines assay has little or no cross-reactivity with ephedrine, pseudoephedrine, phentermine, and methylphenidate. Opiates assay has low cross-reac tivity for buprenorphine, fentanyl, meperidine, methadone, oxycodone, and propoxyphene (all have cut-offs greater than 75,000 ng/mL). Please see Laboratory Services Handbook ([email or web address].[email or web address]_ [email or web address].index.html) for more detailed information on assay cross-reactivity. Drug of abuse screening tests are to be used for medical purposes only and not for non-medical purposes (e.g., employee, drapery worker, or forensic testing). Specimen Urine MICROSCOPIC URINALYSIS (12/23/2016 5:02 AM) Component Value Range White Blood Cells, Urine >180(H) 0-5 /HPF Red Blood Cells, Urine >180(H) 0-2 /HPF Squamous Epithelial Cells, Urine 14(H) <=10 /LPF Mucous-Urine Rare None, Rare WBC Clumps-Urine Present(A) /HPF Specimen Urine URINALYSIS WITH REFLEX CULTURE (12/23/2016 5:02 AM) Component Value Range Color, Urine Yellow Straw, Pale Yellow, Yellow, Clear, None Clarity, Urine Cloudy(A) Clear pH, Urine 5.0 <9.0 Spec [place], Urine 1.020 1.000-1.030 Glucose, Urine Negative Negative Blood, Urine 3+(A) Negative Ketones, Urine Negative Negative Protein, Urine 2+(A) Negative Urobilinogen, Urine Normal Normal Bilirubin, Urine Negative Negative Leukocyte Esterase, Urine 3+(A) Negative Nitrite, Urine Negative Negative Specimen Urine URINALYSIS WITH REFLEXED CULTURE AND MICROSCOPIC EXAM (12/23/2016 5:02 AM) Specimen Culture - Urine, Midstream clean catch Narrative The following orders were created for panel order URINALYSIS WITH REFLEXED CULTURE AND MICROSCOPIC EXAM. Procedure Abnormality Status --------- ------ URINALYSIS WITH REFLEX C...[[id number]]AbnormalFinal result MICROSCOPIC URINALYSIS[[id number]] Abnormal Final result URINE CULTURE, REFLEXED[[id number]]Abnormal Final result Please view results for these tests on the individual orders. CALCIUM-URINE,RANDOM (12/23/2016 5:02 AM) Component Value Range Calcium, Urine, Random 5.6 mg/dL Specimen Urine POTASSIUM-URINE,RANDOM (12/23/2016 5:02 AM) Component Value Range Potassium, Urine, Random 65.9 mEq/L Specimen Urine SODIUM-URINE,RANDOM (12/23/2016 5:02 AM) Component Value Range Sodium, Urine, Random 36 mEq/L Specimen Urine CREATININE-URINE, RANDOM (12/23/2016 5:02 AM) Component Value Range Creatinine, Urine, Random 300.4 mg/dL Specimen Urine URINE CULTURE, REFLEXED (12/23/2016 5:02 AM) Component Value Range Quantitative Culture >100,000 CFU/mL Enterococcus faecalis(A)Comment: Synergy for gentamicin when combined with ampicillin or vancomycin Synergy for streptomycin when combined with ampicillin or vancomycin. Specimen Culture - Urine, Midstream clean catch Narrative Identification performed by MALDI-TOF mass spectrometry (MS).The performance characteristics of MALDI-TOF MS were determined by the [facility].It has not been cleared orApproved by the FDA. The FDA has determined that such clearance or approval is not necessary.This test is for clinical purposes. It should not be regarded as investigational or for research.The laboratory is certified under the Clinical Laboratory Improvement Amendments of 1988 (CLIA) as qualified to perform high complexity clinical laboratory testing. Organism Antibiotic Method Susceptibility Enterococcus faecalis AMPICILLIN <=2: Susceptible Enterococcus faecalis GENTAMICIN HIGH LEVEL Susceptible Enterococcus faecalis LEVOFLOXACIN 0.5: Susceptible Enterococcus faecalis NITROFURANTOIN <=16: Susceptible Enterococcus faecalis STREPTOMYCIN HIGH LEVEL Susceptible Enterococcus faecalis VANCOMYCIN 1: Susceptible
[2017-01-01] MEDS ORDERED: DEXTROSE 5%-0.5 NORMAL SALINE 1,000 ML IV PRN (17:05)
[2017-01-01] MEDS ORDERED: hydrALAZINE HCL 20 MG/ML VIAL IV ONE (18:53)
[2017-01-01] MEDS ORDERED: hydrALAZINE HCL 20 MG/ML VIAL ONE (18:56)
[2017-01-01 19:19] VITALS: BP 196/89
[2017-01-01 19:34] LABS: Urine Bilirubin Negative (NEGATIVE); Urine Ketone Negative (NEGATIVE); Urine Nitrite Negative (NEGATIVE); Urine Protein 100 mg/dL (NEGATIVE); Urine Specific Gravity 1.025 SP.GR. (1.005-1.030); Urine Urobilinogen Normal (NORMAL); Urine pH 5.5 pH (5.0-7.0)
[2017-01-01 19:46] LABS: Urine Appearance Clear; Urine Blood 10 /ul (NEGATIVE); Urine Color Yellow
[2017-01-01 19:47] LABS: Urine Bacteria TRACE; Urine RBC 0-5 /hpf (0-5); Urine WBC 0-5 /hpf (0-5)
== END 2017-01-01 19:34 | disposition short-term general hospital (02) ==
LOC: ER 15:09
DX: I12.9 Hypertensive chronic kidney disease with stage 1 through stage 4 chronic kidney disease, or unspecified chronic kidney disease (principal); E86.0 Dehydration; E16.2 Hypoglycemia, unspecified; K85.90 Acute pancreatitis without necrosis or infection, unspecified; E11.22 Type 2 diabetes mellitus with diabetic chronic kidney disease; N18.4 Chronic kidney disease, stage 4 (severe); Z79.4 Long term (current) use of insulin; E78.5 Hyperlipidemia, unspecified

== ENCOUNTER 2017-04-27 13:02 | Emergency (ER) | payer MEDICARE, MEDICAID ==
[2017-04-27 13:47] LABS: Hematocrit 37.8 % (42.0-52.0); Hemoglobin 12.1 gm/dL (13.5-18.0); Mean Cell Volume 97.7 fl (78-100); Mean Corpuscular Hemoglobin 31.3 pg (27-31); Mean Platelet Volume 8.6 fl (6.0-9.5); Neutrophil % 62.7 % (42-75.0); Platelet Count 196 K/mm3 (150-450); Red Blood Count 3.87 M/mm3 (4.7-6.0); Red Cell Distribution Width 15.3 % (11.5-14.0); White Blood Count 6.4 K/mm3 (4.0-10.5)
--- NOTE | 2017-04-27 13:55 | ERNOTE ---
Medical Problem HPI - Narrative Date of Service: 04/27/17 - General Chief Complaint: Altered Mental Status Time Seen by Provider: 04/27/17 13:25 Source: patient, family, RN notes reviewed Exam Limitations: no limitations - Immun/Allergies/Home Medications Immunizations: IMMUNIZATION HX Immunizations Up to Date No: pt unsure History of Influenza Vaccine No Hx Pneumococcal Vaccination No Allergies/Adverse Reactions: Allergies lisinopril [From Zestril] Adverse Reaction (Mild, Verified 01/01/17 15:20) COUGH Home Medications: HOME MEDICATIONS Atorvastatin Calcium [Lipitor] 40 mg PO HS 09/28/14 [Last Taken Unknown] Blood Sugar Diagnostic, Drum [Accu-Chek Compact] 1 each MC DAILY 09/28/14 [Last Taken Unknown] Clonidine HCl [Catapres] 0.2 mg PO BID 09/28/14 [Last Taken Unknown] DULoxetine HCL [Cymbalta] 30 mg PO BID 09/28/14 [Last Taken Unknown] Metoprolol Tartrate [Lopressor] 25 mg PO BID 09/28/14 [Last Taken 10/08/14 0600] amLODIPine BESYLATE [Norvasc] 10 mg PO DAILY 09/28/14 [Last Taken Unknown] glipiZIDE [Glucotrol] 10 mg PO DAILY 09/28/14 [Last Taken Unknown] Insulin Glargine,Hum.rec.anlog [Lantus] 15 units SQ HS 10/08/14 [Last Taken 05/14] Cholecalciferol [Vitamin D] 5,000 unit PO DAILY 12/22/16 [Last Taken Unknown] Tramadol HCl [Rybix Odt] 50 mg PO DAILY 04/27/17 [Last Taken Unknown] - History of Present History Narrative: 71 y/o male brought to the ED by a friend for forgetfulness. The friend called him this morning and reminded him to check his blood sugar. He then called her back less than a minute later and asked her if she had just called him. He has also been noted to be sleeping more than usual during the day for the past 3 days. He was seen at [facility] a week ago and is supposed to be starting dialysis, but he has not been contacted regarding the arrangements yet. Review of Systems - Review of Systems Constitutional: Present: fatigue, decreased activity level. Absent: recent illness, fever, chills EYE: Present: no symptoms reported ENT: Present: no symptoms reported Respiratory: Absent: shortness of breath, cough Cardiology: Absent: chest pain, syncope Gastrointestinal/Abdominal: Absent: vomiting, diarrhea, abdominal pain, eating less, drinking less Genitourinary: Absent: dysuria, hematuria, decreased urinary output Musculoskeletal: Present: no symptoms reported Skin: Present: no symptoms reported Neurological: Absent: dizziness/light-headedness, weakness, numbness, tingling Endocrine: Present: no symptoms reported Hematologic/Lymphatic: Present: no symptoms reported Psych: Present: no symptoms reported - Patient's Past Medical History Patient History - Medical: Anemia, Chronic Pain, Diabetes Type 2 Insulin Dependent, Migraines, Obesity, Renal Failure Patient History - Cardiac/Respiratory: Coronary Heart Disease, Hypertension, Hyperlipidemia Patient History - Cancer: No Hx of Cancer Patient History - Surgical Procedures: Cardiac stent, Total Knee Replacement, Other Patient History - Other: None - Social History Living Situations: home Abuse History: No History of abuse Psych History: Hx of Anxiety, Current tx/ever been on anti-depressants or anti- anxiety meds Smoking Status: Former smoker Alcohol Use: none Drug Use: none - Immunizations Immunizations Up to Date: No - pt unsure Hx Pneumococcal Vaccination: No History of Influenza Vaccine: No Physical Exam - Physical Exam General Appearance: Present: alert, no apparent distress, obese, other - poor hygiene Neck: Present: nontender, other - tracheostomy present Respiratory: Present: no respiratory distress, no accessory muscle use, decreased breath sounds, expiration (prolonged) Cardiovascular/Chest: Present: regular rate, rhythm, no murmur Extremity Exam: Present: normal inspection, normal range of motion Neurological Exam: Present: alert, oriented, normal mood/affect, no motor/ sensory deficits Skin Exam: Present: normal color, warm/dry ED Progress - Results and Orders Patient's Lab Results:: I have reviewed the patient's lab results. - Vital Signs Patient's Vital Signs:: I have reviewed the patient's vital signs. Vital Signs: Vital Signs 04/27/17 13:14 Temperature 36.9 C Pulse Rate 66 Respiratory 16 Rate Blood Pressure 141/80 O2 Sat by Pulse 99 Oximetry - Progress/Reassessment Chief Complaint: Altered Mental Status Progress:: Unchanged Plan - Plan Plan: No acute findings - patient's renal function is actually somewhat better than the last time it was checked. Dozes at times in exam room but easily awakens and is appropriate. Departure - Departure Clinical Impression: Forgetfulness Chronic renal failure Qualifiers: Chronic kidney disease stage: unspecified stage Qualified Code(s): N18.9 - Chronic kidney disease, unspecified Disposition: Home Follow Up Needed Condition: Stable Instructions: Chronic Kidney Disease, [place]ms[place]-og-Sfac Additional Instructions: Continue your routine medications Contact [place] regarding dialysis Return to ER if symptoms worsen Referrals: Anneliese Reyes MD [Primary Care Provider] -
[2017-04-27 13:57] LABS: Urine Bilirubin Negative (NEGATIVE); Urine Blood 25 /ul (NEGATIVE); Urine Ketone Negative (NEGATIVE); Urine Nitrite Negative (NEGATIVE); Urine Protein 30 mg/dL (NEGATIVE); Urine Urobilinogen Normal (NORMAL)
[2017-04-27 14:08] LABS: Albumin * 2.9 gm/dl (3.4-5.0); BUN/Creatinine Ratio 7.8 (9.0-21.6); Bilirubin, Total 0.3 mg/dL (0.0-1.1); Ca. Corrected For Albumin 10.2 mg/dL (8.4-10.2); Calcium * 9.6 mg/dL (7.9-10.9); Carbon Dioxide 26.4 mmol/L (24-32.6); Potassium 4.4 mmol/L (3.4-4.6); Total Protein 7.3 gm/dL (6.2-8.2)
[2017-04-27 14:15] VITALS: BP 161/81
[2017-04-27 14:16] LABS: Urine Appearance Clear; Urine Bacteria None Seen; Urine Color Yellow; Urine RBC 0-5 /hpf (0-5); Urine WBC None Seen /hpf (0-5)
== END 2017-04-27 14:57 | disposition home or self-care (01) ==
LOC: ER 13:02
DX: R68.89 Other general symptoms and signs (principal); N18.9 Chronic kidney disease, unspecified; E11.9 Type 2 diabetes mellitus without complications; Z79.4 Long term (current) use of insulin; I10 Essential (primary) hypertension; E78.5 Hyperlipidemia, unspecified; F41.9 Anxiety disorder, unspecified; I50.9 Heart failure, unspecified; Z95.5 Presence of coronary angioplasty implant and graft; Z87.891 Personal history of nicotine dependence

== ENCOUNTER 2017-06-11 18:48 | Emergency (ER) | payer MEDICARE, OTHER ==
[2017-06-11 19:53] VITALS: BP 141/83
--- NOTE | 2017-06-11 20:06 | ERNOTE ---
Medical Problem HPI - Narrative Date of Service: 06/11/17 - General Chief Complaint: General Assessment Source: patient Exam Limitations: no limitations - Immun/Allergies/Home Medications Immunizations: IMMUNIZATION HX Immunizations Up to Date Yes History of Influenza Vaccine Yes Hx Pneumococcal Vaccination No Allergies/Adverse Reactions: Allergies lisinopril [From Zestril] Adverse Reaction (Mild, Verified 01/01/17 15:20) COUGH Home Medications: HOME MEDICATIONS Atorvastatin Calcium [Lipitor] 40 mg PO HS 09/28/14 [Last Taken Unknown] Blood Sugar Diagnostic, Drum [Accu-Chek Compact Plus Strips] 1 each MC DAILY [Last Taken Unknown] Clonidine HCl [Catapres] 0.2 mg PO BID 09/28/14 [Last Taken Unknown] DULoxetine HCL [Cymbalta] 30 mg PO BID 09/28/14 [Last Taken Unknown] Metoprolol Tartrate [Lopressor] 25 mg PO BID 09/28/14 [Last Taken 10/08/14 0600] amLODIPine BESYLATE [Norvasc] 10 mg PO DAILY 09/28/14 [Last Taken Unknown] glipiZIDE [Glucotrol] 10 mg PO DAILY 09/28/14 [Last Taken Unknown] Insulin Glargine,Hum.rec.anlog [Lantus] 15 units SQ HS 10/08/14 [Last Taken 05/14] Cholecalciferol [Vitamin D] 5,000 unit PO DAILY 12/22/16 [Last Taken Unknown] Tramadol HCl [Rybix Odt] 50 mg PO DAILY 04/27/17 [Last Taken Unknown] - History of Present History Narrative: patient has had olamide trac tube for several years tube came out today, no respiratory distress Timing: constant Severity: mild Review of Systems - Narrative Narrative: trac tubtube fell out - Review of Systems Constitutional: Present: no symptoms reported EYE: Present: no symptoms reported ENT: Present: other - olamide trac tube out of site Respiratory: Present: no symptoms reported Cardiology: Present: no symptoms reported Gastrointestinal/Abdominal: Present: no symptoms reported Genitourinary: Present: no symptoms reported Musculoskeletal: Present: no symptoms reported Skin: Present: no symptoms reported Neurological: Present: no symptoms reported Endocrine: Present: no symptoms reported Hematologic/Lymphatic: Present: no symptoms reported Psych: Present: no symptoms reported All Other Systems: All systems neg except as marked - Patient's Past Medical History Patient History - Medical: Anemia, Chronic Pain, Diabetes Type 2 Insulin Dependent, GERD, Migraines, Obesity, Renal Failure Patient History - Cardiac/Respiratory: Coronary Heart Disease, Hypertension, Hyperlipidemia Patient History - Cancer: No Hx of Cancer Patient History - Surgical Procedures: Cardiac stent, Total Knee Replacement, Other Patient History - Other: None - Social History Living Situations: home Abuse History: No History of abuse Psych History: Hx of Anxiety, Hx of Depression, Current tx/ever been on anti- depressants or anti-anxiety meds Smoking Status: Current every day smoker Have you smoked in the past 12 months: Yes Do you dip or chew tobacco: No Patient requests Smoking Cessation Consult: No Initiate information on Smoking Cessation: No Alcohol Use: none Drug Use: none - Immunizations Immunizations Up to Date: Yes Hx Pneumococcal Vaccination: No History of Influenza Vaccine: Yes Physical Exam - Physical Exam General Appearance: Present: alert, mild distress Head Exam: Present: normal inspection, no evidence of injury Eye Exam: Normal inspection: bilateral, PERRL: bilateral, EOMI: bilateral, Abnormal EOM: bilateral, Abnormal pupil: bilateral, Sclera injection: bilateral , Scleral icterus: bilateral, Eye drainage: bilateral, Eyelid inflammation: bilateral Neck: Present: nontender, other - trac tube out of stoma Respiratory: Present: no respiratory distress, no accessory muscle use Cardiovascular/Chest: Present: regular rate, rhythm, no murmur, normal peripheral pulses Peripheral Pulses: N=norm/S=strong/W=weak/B=bound/A=absent: Carotid (R): Normal , Carotid (L): Normal, Radial (R): Normal, Radial (L): Normal, Femoral (R): Normal, Femoral (L): Normal, Dorsalis-pedis (R): Normal, Dorsalis-pedis (L): Normal Gastrointestinal/Abdominal: Present: normal bowel sounds, nontender, nondistended, soft, no organomegaly Rectal Exam: Present: nontender, normal rectal tone Male Genitals Exam: Present: normal genitalia, normal prostate, no hernia Back Exam: Present: normal inspection, normal range of motion, no CVA tenderness , no vertebral tenderness Extremity Exam: Present: normal inspection, non-tender, normal range of motion, no edema Neurological Exam: Present: alert, oriented, normal mood/affect, no motor/ sensory deficits DTR: N=norm/NB=norm/brisk/A=abs/DD=dull/dimin/HC=hyperactive: Bicep (R): Normal , Bicep (L): Normal, Tricep (R): Normal, Tricep (L): Normal, Knee (R): Normal, Knee (L): Normal, Ankle (R): Normal, Ankle (L): Normal Skin Exam: Present: normal color, warm/dry Lymphatic Exam: Present: no adenopathy ED Progress - Results and Orders Patient's Lab Results:: I have reviewed the patient's lab results. - Vital Signs Patient's Vital Signs:: I have reviewed the patient's vital signs. Vital Signs: Vital Signs 06/11/17 18:49 Temperature 36.8 C Pulse Rate 77 Respiratory 18 Rate Blood Pressure 148/76 O2 Sat by Pulse 98 Oximetry - Progress/Reassessment Chief Complaint: General Assessment Progress:: Improved - trac replace with 4 pediatric et tube, case dicussed with dr patricio, instructed to leave tub inplace f/u wednesday in office Departure - Departure Clinical Impression: Tracheostomy complication Disposition: Home self-care Instructions: Stoma Care and Tracheostomy Tube Tie Change, Referrals: Anneliese Reyes MD [Primary Care Provider] -
== END 2017-06-11 20:09 | disposition home or self-care (01) ==
LOC: ER 18:48
DX: J95.00 Unspecified tracheostomy complication (principal); F17.200 Nicotine dependence, unspecified, uncomplicated

== ENCOUNTER 2017-08-08 21:46 | Emergency (ER) | payer MEDICARE, OTHER ==
[2017-08-08] MEDS ORDERED: DEXTROSE 50%-WATER 50 ML SYRG ONE (21:53)
[2017-08-08] MEDS ORDERED: DEXTROSE 50%-WATER 50 ML SYRG IV ONE (21:58)
[2017-08-08] MEDS ORDERED: DEXTROSE 4 GM/TAB BTL ONE (22:42)
[2017-08-08] MEDS ORDERED: DEXTROSE 4 GM/TAB BTL PO ONE (22:43)
[2017-08-09 01:34] LABS: Hematocrit 32.3 % (42.0-52.0); Hemoglobin 10.4 gm/dL (13.5-18.0); Mean Cell Volume 99.4 fl (78-100); Mean Corpuscular Hgb Conc 32.2 g/dl (32-36); Mean Platelet Volume 9.1 fl (6.0-9.5); Neutrophil # 7.6 K/mm3 (1.3-6.0); Platelet Count 169 K/mm3 (150-450); Red Blood Count 3.25 M/mm3 (4.7-6.0); Red Cell Distribution Width 14.2 % (11.5-14.0); White Blood Count 10.1 K/mm3 (4.0-10.5)
[2017-08-09 01:48] LABS: Albumin * 2.5 gm/dl (3.4-5.0); Anion Gap 17.2 mmol/L (6.8-13.8); BUN/Creatinine Ratio 4.6 (9.0-21.6); Bilirubin, Total 0.4 mg/dL (0.0-1.1); Ca. Corrected For Albumin 9.8 mg/dL (8.4-10.2); Calcium * 8.9 mg/dL (7.9-10.9); Carbon Dioxide 20.9 mmol/L (24-32.6); Potassium 5.1 mmol/L (3.4-4.6); Total Protein 7.3 gm/dL (6.2-8.2)
--- NOTE | 2017-08-09 02:37 | ERNOTE ---
Medical Problem HPI - General Chief Complaint: Diabetes Related Problem Time Seen by Provider: 08/08/17 21:46 Source: patient, family, EMS, RN notes reviewed Exam Limitations: clinical condition - Immun/Allergies/Home Medications Immunizations: IMMUNIZATION HX Immunizations Up to Date Yes History of Influenza Vaccine Yes Hx Pneumococcal Vaccination No Allergies/Adverse Reactions: Allergies lisinopril [From Zestril] Adverse Reaction (Mild, Verified 01/01/17 15:20) COUGH Home Medications: HOME MEDICATIONS Atorvastatin Calcium [Lipitor] 40 mg PO HS 09/28/14 [Last Taken Unknown] Blood Sugar Diagnostic, Drum [Accu-Chek Compact Plus Strips] 1 each MC DAILY [Last Taken Unknown] Clonidine HCl [Catapres] 0.2 mg PO BID 09/28/14 [Last Taken Unknown] DULoxetine HCL [Cymbalta] 60 mg PO BID 09/28/14 [Last Taken Unknown] Metoprolol Tartrate [Lopressor] 25 mg PO BID 09/28/14 [Last Taken 10/08/14 0600] amLODIPine BESYLATE [Norvasc] 10 mg PO DAILY 09/28/14 [Last Taken Unknown] glipiZIDE [Glucotrol] 10 mg PO DAILY 09/28/14 [Last Taken Unknown] Cholecalciferol [Vitamin D] 5,000 unit PO DAILY 12/22/16 [Last Taken Unknown] Tramadol HCl [Rybix Odt] 50 mg PO DAILY 04/27/17 [Last Taken Unknown] Acetaminophen 500 mg PO Q6H PRN 08/08/17 [Last Taken Unknown] Amitriptyline HCl [Elavil] 25 mg PO HS 08/08/17 [Last Taken Unknown] Furosemide [Lasix] 80 mg PO DAILY 08/08/17 [Last Taken Unknown] - History of Present History Narrative: Patient has been having problems with low blood sugars. He was walking across the lawn to come to the ED when he fell, and was unable to get up and walk. EMS were called and brought the patient here. Patient is a dialysis patient, who has diabetes and is on Glipizide for his diabetes. Timing: constant Severity: severe Modifying Factors - (Worsens): Present: movement Review of Systems - Review of Systems Constitutional: Present: weakness, fatigue, malaise. Absent: recent illness, fever, chills EYE: Present: no symptoms reported ENT: Absent: ear pain, sore throat Respiratory: Absent: shortness of breath, cough Cardiology: Absent: chest pain, palpitations Gastrointestinal/Abdominal: Absent: nausea, vomiting, diarrhea Genitourinary: Present: no symptoms reported Musculoskeletal: Absent: back pain, muscle pain, muscle stiffness, neck pain, joint pain Skin: Absent: rash, dryness Neurological: Present: depressed Endocrine: Present: excessive sweating Hematologic/Lymphatic: Present: no symptoms reported Psych: Present: depressed - Patient's Past Medical History Patient History - Medical: Anemia, Chronic Pain, Diabetes Type 2 Insulin Dependent, GERD, Migraines, Obesity, Renal Failure Patient History - Cardiac/Respiratory: Coronary Heart Disease, Hypertension, Hyperlipidemia Patient History - Cancer: No Hx of Cancer Patient History - Surgical Procedures: Cardiac stent, Total Knee Replacement, Other Patient History - Other: None - Social History Living Situations: home Abuse History: No History of abuse Psych History: Hx of Anxiety, Hx of Depression, Current tx/ever been on anti- depressants or anti-anxiety meds - Immunizations Immunizations Up to Date: Yes Hx Pneumococcal Vaccination: No History of Influenza Vaccine: Yes Physical Exam - Physical Exam General Appearance: Present: wd/wn, alert, lethargic, obese Head Exam: Present: normal inspection, no evidence of injury Eye Exam: Normal inspection: bilateral, EOMI: bilateral Ears, Nose, Throat: Present: normal ENT inspection Neck: Present: normal inspection, nontender Respiratory: Present: no respiratory distress, normal breath sounds, no accessory muscle use Gastrointestinal/Abdominal: Present: normal bowel sounds, nontender, nondistended, soft Extremity Exam: Present: decreased range of motion, extremity edema Neurological Exam: Present: alert, oriented, normal mood/affect, no motor/ sensory deficits Skin Exam: Present: normal color ED Progress - Results and Orders Patient's Lab Results:: I have reviewed the patient's lab results. Results and Orders: Laboratory Tests 08/09/17 08/09/17 01:30 01:30 WBC 10.1 RBC 3.25 L Hgb 10.4 L Hct 32.3 L MCV 99.4 MCH 32.0 H MCHC 32.2 RDW 14.2 H Plt Count 169 MPV 9.1 Immature Gran % (Auto) 0.60 H Immature Gran # (Auto) 0.06 H Neutrophils % 75.0 Lymphocytes % 14.5 L Monocytes % 8.3 Eosinophils % 1.3 Basophils % 0.3 Nucleated RBC % 0.0 Neutrophils # 7.6 H Lymphocytes # 1.5 Monocytes # 0.8 Eosinophils # 0.1 Absolute Basophils 0.0 Sodium 134 Plasma Sodium 135 Potassium 5.1 H Chloride 101 Carbon Dioxide 20.9 L Anion Gap 17.2 H BUN 45 H Creatinine 9.84 H D Est GFR (Non-Af Amer) 7 L D BUN/Creatinine Ratio 4.6 L Random Glucose 179 H Calcium 8.9 Calcium Adj for Albumin 9.8 Total Bilirubin 0.4 AST 22 ALT 17 L Alkaline Phosphatase 113 Total Protein 7.3 Albumin 2.5 L - Vital Signs Patient's Vital Signs:: I have reviewed the patient's vital signs. Vital Signs: Vital Signs 08/08/17 08/08/17 08/08/17 22:01 22:17 23:31 Temperature 36.9 C Pulse Rate 77 73 68 Respiratory 20 22 H 18 Rate Blood Pressure 124/64 119/59 142/74 O2 Sat by Pulse 97 97 98 Oximetry 08/09/17 08/09/17 08/09/17 00:08 00:30 01:21 Temperature 36.9 C Pulse Rate 63 70 70 Respiratory 18 16 18 Rate Blood Pressure 142/65 138/75 131/75 O2 Sat by Pulse 97 97 97 Oximetry 08/09/17 02:02 Temperature Pulse Rate 66 Respiratory 16 Rate Blood Pressure 141/81 O2 Sat by Pulse 96 Oximetry - X-Ray X-Ray #1 X-Ray: chest Interpretation: Reviewed by me X-ray Comments: [facility] PATIENT RADIOLOGY STUDY REPORT Patient Patient Name:JOSE ANGEL HOANG Date: 1945 Sex: M Order Number: [id number] Unique Exam ID: [id number] Exam Requested: CXRSINGLE - Chest Single View * Date Scheduled: 08-09-2017 12:42 AM Study Priority: Requesting Service: Requesting Physician: Melissa Barrera Reason for Exam: cough Radiological Report : [place] [address] NAME: JOSE ANGEL HOANG : 1945 MR #: [id number] CC: LOC: ADM DATE: X-RAY REPORT [id number] RAD/Chest Single View * Exam Date: 08/09/2017 00:42 Ordering Physician: Melissa Barrera History: cough. Technique: Frontal views of the chest are evaluated. (1) views. Comparison: Prior exams, most recent is June 11, 2017. Findings: There is unchanged positioning of the right internal jugular dialysis catheter. A tracheostomy tube is in satisfactory positioning. The patient is apically lordotically positioned. The lungs are hypoinflated. No focal consolidation. No pneumothorax or pleural effusion. The mediastinum, cardiac silhouette and pulmonary vascularity are within normal limits. No acute osseous findings. Suggestion of widening of the bilateral acromioclavicular joints, which may represent sequela of distal clavicular osteolysis and hyperparathyroidism or trauma in the absence of relevant surgery. Degenerative changes noted. IMPRESSION: Hypoventilatory changes. No acute pulmonary findings. Additional findings and comments are as above. Electronically signed by Serg Porter D.O.. Serg Porter DO Dict: 08/09/1742 Typed: 08/09/1742/ 08/09/17 0648 08/09/17 0653 , Approved by: Serg Porter Approval Date: 08-09-2017 Approval Time: 06:42 AM THIS REPORT WAS RECEIVED FROM THE [facility] SYSTEM - Progress/Reassessment Chief Complaint: Diabetes Related Problem Progress:: Improved Progress Note-Subjective: 08/09/17 06:44 We were unable to establish another IV on this patient, however he was able to take PO liquids, which worked to get his blood sugar back to normal. Departure Clinical Impression: Hypoglycemia secondary to sulfonylurea Qualifiers: Encounter type: initial encounter Injury intent: accidental or unintentional Qualified Code(s): T38.3X1A - Poisoning by insulin and oral hypoglycemic [ antidiabetic] drugs, accidental (unintentional), initial encounter - Departure Disposition: Home self-care Condition: Good Instructions: Blood Glucose Monitoring, Adult Additional Instructions: Stop taking your glipizide and discuss that medication with Dr. Reyes. Referrals: Anneliese Reyes MD [Primary Care Provider] - (2-4 days)
[2017-08-09 02:50] VITALS: BP 138/71
== END 2017-08-09 02:48 | disposition home or self-care (01) ==
LOC: ER 21:46
DX: E11.649 Type 2 diabetes mellitus with hypoglycemia without coma (principal); T38.3X5A Adverse effect of insulin and oral hypoglycemic [antidiabetic] drugs, initial encounter; Z79.84 Long term (current) use of oral hypoglycemic drugs; Y92.007 Garden or yard of unspecified non-institutional (private) residence as the place of occurrence of the external cause; I10 Essential (primary) hypertension; E78.5 Hyperlipidemia, unspecified; I50.9 Heart failure, unspecified; Z95.5 Presence of coronary angioplasty implant and graft; F32.9 Major depressive disorder, single episode, unspecified; G89.29 Other chronic pain

== ENCOUNTER 2017-09-17 20:22 | Emergency (ER) | payer MEDICARE, OTHER ==
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
[2017-09-18 00:42] VITALS: BP 161/84
== END 2017-09-18 00:40 | disposition home or self-care (01) ==
LOC: ER 20:22
DX: M25.561 Pain in right knee (principal); M54.5 Low back pain; G89.29 Other chronic pain; F17.200 Nicotine dependence, unspecified, uncomplicated

== ENCOUNTER 2017-11-29 19:35 | Emergency (ER) | payer MEDICARE, OTHER ==
--- NOTE | 2017-11-29 21:31 | ERNOTE ---
Medical Problem HPI - General Chief Complaint: Nausea/Vomiting Time Seen by Provider: 11/29/17 21:22 Source: patient Exam Limitations: no limitations - Immun/Allergies/Home Medications Immunizations: IMMUNIZATION HX Immunizations Up to Date Yes History of Influenza Vaccine Yes Hx Pneumococcal Vaccination No Allergies/Adverse Reactions: Allergies lisinopril [From Zestril] Adverse Reaction (Mild, Verified 09/17/17 20:36) COUGH Home Medications: HOME MEDICATIONS Atorvastatin Calcium [Lipitor] 40 mg PO HS 09/28/14 [Last Taken Unknown] Blood Sugar Diagnostic, Drum [Accu-Chek Compact Plus Strips] 1 each MC DAILY [Last Taken Unknown] Clonidine HCl [Catapres] 0.2 mg PO BID 09/28/14 [Last Taken Unknown] DULoxetine HCL [Cymbalta] 60 mg PO BID 09/28/14 [Last Taken Unknown] Metoprolol Tartrate [Lopressor] 25 mg PO BID 09/28/14 [Last Taken 10/08/14 0600] amLODIPine BESYLATE [Norvasc] 10 mg PO DAILY 09/28/14 [Last Taken Unknown] glipiZIDE [Glucotrol] 10 mg PO DAILY 09/28/14 [Last Taken Unknown] Cholecalciferol [Vitamin D] 5,000 unit PO DAILY 12/22/16 [Last Taken Unknown] Tramadol HCl [Rybix Odt] 50 mg PO DAILY 04/27/17 [Last Taken Unknown] Acetaminophen 500 mg PO Q6H PRN 08/08/17 [Last Taken Unknown] Amitriptyline HCl [Elavil] 25 mg PO HS 08/08/17 [Last Taken Unknown] Furosemide [Lasix] 80 mg PO DAILY 08/08/17 [Last Taken Unknown] Cefpodoxime Proxetil 200 mg PO 3XW #4 tablet 11/29/17 [Last Taken Unknown] - History of Present History Narrative: Pt states he was diagnosed with pneumonia a week ago at the walk in clinic without any lab or xray and treated with oral antibiotics Timing: getting worse Severity: moderate Review of Systems - Review of Systems Constitutional: Present: recent illness, fever, chills EYE: Present: no symptoms reported ENT: Present: nose congestion, nasal drainage Respiratory: Present: See HPI Cardiology: Absent: chest pain Gastrointestinal/Abdominal: Present: nausea, vomiting Genitourinary: Present: no symptoms reported Musculoskeletal: Present: no symptoms reported Skin: Absent: rash Neurological: Present: no symptoms reported Endocrine: Absent: excessive sweating, flushing Hematologic/Lymphatic: Absent: easy bruising, easy bleeding Psych: Present: no symptoms reported - Patient's Past Medical History Patient History - Medical: Anemia, Chronic Pain, Diabetes Type 2 Insulin Dependent, GERD, Migraines, Obesity, Renal Failure Patient History - Cardiac/Respiratory: Coronary Heart Disease, Hypertension, Hyperlipidemia Patient History - Cancer: No Hx of Cancer Patient History - Surgical Procedures: Cardiac stent, Total Knee Replacement, Other Patient History - Other: None - Social History Living Situations: home Abuse History: No History of abuse Psych History: Hx of Anxiety, Hx of Depression, Current tx/ever been on anti- depressants or anti-anxiety meds Smoking Status: Never smoker Have you smoked in the past 12 months: No Do you dip or chew tobacco: Yes Alcohol Use: none Drug Use: none - Immunizations Immunizations Up to Date: Yes Hx Pneumococcal Vaccination: No History of Influenza Vaccine: Yes Physical Exam - Physical Exam General Appearance: Present: wd/wn, alert, no apparent distress Ears, Nose, Throat: Present: normal ENT inspection Neck: Present: normal inspection, nontender, supple Respiratory: Present: no respiratory distress, rales, rhonchi - right lung Cardiovascular/Chest: Present: regular rate, rhythm, no murmur Extremity Exam: Absent: calf tenderness, bony tenderness Neurological Exam: Present: alert, oriented, normal mood/affect, no motor/ sensory deficits Skin Exam: Present: normal color, warm/dry Lymphatic Exam: Present: no adenopathy ED Progress - Results and Orders Patient's Lab Results:: I have reviewed the patient's lab results. Results and Orders: Laboratory Tests 11/29/17 11/29/17 11/29/17 21:30 21:40 21:40 WBC 9.6 Hgb 14.9 Hct 45.2 Plt Count 144 L Sodium 135 Potassium 4.8 H D Chloride 96 L Carbon Dioxide 34.4 H Anion Gap 9.4 BUN 23 Creatinine 6.24 H D Est GFR (Non-Af Amer) 11 L D Random Glucose 97 Calcium 9.4 Total Bilirubin 0.7 AST 20 ALT 18 L Alkaline Phosphatase 120 Total Protein 8.6 H Albumin 3.3 L Amylase 115 Lipase 189 Influenza Type A Ag Negative Influenza Type B Ag Negative - Vital Signs Patient's Vital Signs:: I have reviewed the patient's vital signs. Vital Signs: Vital Signs 11/29/17 19:53 Temperature 36 C L Pulse Rate 96 Respiratory 20 Rate Blood Pressure 118/77 O2 Sat by Pulse 99 Oximetry - X-Ray X-Ray #1 X-Ray: chest Interpretation: Interp. by me X-ray Comments: no infiltrate or effusion. Hyperinflation X-Ray #2 X-Ray: abdomen Interpretation: Interp. by me X-ray Comments: No obstruction or mass, no free air. - Progress/Reassessment Chief Complaint: Nausea/Vomiting Departure Clinical Impression: Lower respiratory infection, Chronic kidney disease (CKD) stage G4/A1, severely decreased glomerular filtration rate (GFR) between 15-29 mL/min/1.73 square meter and albuminuria creatinine ratio less than 30 mg/g - Departure Disposition: Home Follow Up Needed Condition: Good Instructions: Community-Acquired Pneumonia, Adult, [id number] Additional Instructions: Take antibiotics as directed after dialysis. See your regular doctor later this week for follow up. Take deep breaths 3-4 times a day Referrals: Bassem Menezes DO [Primary Care Provider] - Prescriptions: Cefpodoxime Proxetil 200 mg PO 3XW #4 tablet
[2017-11-29 21:43] LABS: Hematocrit 45.2 % (42.0-52.0); Hemoglobin 14.9 gm/dL (13.5-18.0); Mean Cell Volume 101.6 fl (78-100); Mean Corpuscular Hemoglobin 33.5 pg (27-31); Mean Platelet Volume 8.8 fl (6.0-9.5); Neutrophil # 6.2 K/mm3 (1.3-6.0); Neutrophil % 64.6 % (42-75.0); Platelet Count 144 K/mm3 (150-450); Red Blood Count 4.45 M/mm3 (4.7-6.0); Red Cell Distribution Width 13.5 % (11.5-14.0); White Blood Count 9.6 K/mm3 (4.0-10.5)
[2017-11-29 21:56] LABS: Albumin * 3.3 gm/dl (3.4-5.0); Anion Gap 9.4 mmol/L (6.8-13.8); BUN/Creatinine Ratio 3.7 (9.0-21.6); Bilirubin, Total 0.7 mg/dL (0.0-1.1); Ca. Corrected For Albumin 9.6 mg/dL (8.4-10.2); Calcium * 9.4 mg/dL (7.9-10.9); Carbon Dioxide 34.4 mmol/L (24-32.6); Potassium 4.8 mmol/L (3.4-4.6); Total Protein 8.6 gm/dL (6.2-8.2)
[2017-11-30 08:39] VITALS: BP 140/72
== END 2017-11-29 23:30 | disposition home or self-care (01) ==
LOC: ER 19:35
DX: Z95.5 Presence of coronary angioplasty implant and graft; N18.4 Chronic kidney disease, stage 4 (severe); J22 Unspecified acute lower respiratory infection

== ENCOUNTER 2020-02-19 15:32 | Observation (INO) ==
[2020-02-19] MEDS ORDERED: ACETAMINOPHEN 325 MG TABLET PO ONE ×2 (16:20→20:09)
--- NOTE | 2020-02-19 16:53 | ERNOTE ---
Dyspnea - General Presenting Symptoms: shortness of breath Time Seen by Provider: 02/19/20 16:00 Source: patient Exam Limitations: no limitations - Immun/Allergies/Home Medications Immunizations: IMMUNIZATION HX Immunizations Up to Date Yes History of Influenza Vaccine Yes Hx Pneumococcal Vaccination No Allergies/Adverse Reactions: Allergies lisinopril [From Zestril] Adverse Reaction (Mild, Verified 02/19/20 16:00) COUGH Home Medications: HOME MEDICATIONS RX: Acetaminophen 500 mg PO Q6H PRN 08/08/17 [Last Taken 10/08/18 15:00] Cholecalciferol (Vitamin D3) [Vitamin D3] 1,000 unit PO DAILY 10/08/18 [Last Taken Unknown] Doxycycline Hyclate [Vibratab] 100 mg PO BID 10/08/18 [Last Taken 06/21/19] Banquet Food Server/Grabber 0 .ROUTE .MEDSUPPLY #1 ea 11/23/18 [Last Taken Unknown] cane See Dose Instructions .ROUTE .MEDSUPPLY #1 ea 11/23/18 [Last Taken Unknown] magnesium citrate 120 ml PO DAILY PRN #120 ml 03/10/19 [Last Taken 06/21/19] sennosides 8.6 mg-docusate sodium 50 mg tablet 2 tab PO BID #60 tab 03/10/19 [Last Taken 06/21/19] atorvastatin 40 mg tablet See Rx Instructions .ROUTE .COMPLEX #30 unspecified 10/03/19 [Last Taken Unknown] amitriptyline 25 mg tablet See Rx Instructions .ROUTE .COMPLEX #30 unspecified 12/04/19 [Last Taken Unknown] amlodipine 5 mg tablet See Rx Instructions .ROUTE .COMPLEX #30 unknown measurement unit code: not specified 12/11/19 [Last Taken Unknown] naloxone 4 mg/actuation nasal spray See Rx Instructions .ROUTE .COMPLEX #2 unknown measurement unit code: not specified 01/01/20 [Last Taken Unknown] ondansetron HCl 8 mg tablet 8 mg PO Q8H PRN #10 tab 01/25/20 [Last Taken Unknown] hydrocodone 10 mg-acetaminophen 325 mg tablet See Rx Instructions .ROUTE .COMPLEX #120 unknown measurement unit code: not specified 02/02/20 [Last Taken Unknown] morphine 100 mg tablet,extended release 100 mg PO Q12H #60 tab 02/16/20 [Last Taken Unknown] dicyclomine 10 mg capsule See Rx Instructions .ROUTE .COMPLEX #240 unspecified 02/19/20 [Last Taken Unknown] omeprazole 10 mg capsule,delayed release 10 mg PO HS #30 cap 02/19/20 [Last Taken Unknown] - History of Present Illness Narrative: Patient has COPD, trach for severe sleep apnea, chronic right knee osteomyelitis and endstage renal disease on dialysis. He reports that he has had cough, fever and shortness of breath for three days. He was at dialysis today (states that he did not get his full treatment) and was send to the respiratory clinic for the cough and fever. There he was found to have a temp of 38C, was hypotensive and tachycardic and send to the ER. He was admitted at [facility] a month ago for pneumonia, CXR was normal at follow up in the clinic on 01/25/20. He denies chest pain. Initiating event: Denies: upper resp illness, out of meds Frequency of episodes: Reports: frequent episodes Associated Symptoms-Dyspnea: Reports: fever/chills, cough, wheezing Prior Treatment: Reports: recently seen. Denies: currently on antibiotics Medical History (Last Reviewed 02/19/20 @ 16:44 by Bia Matamoros MD) Chronic osteomyelitis (Chronic) End stage renal disease (Chronic) Nausea (Chronic) Anorexia (Acute) past 3 weeks Chronic kidney disease, stage V (very severe) (Chronic) Chronic pain syndrome (Chronic) Constipation due to opioid therapy (Chronic) Muscle strain, hand (Acute) Sprain of the [place]umb[place] between the index and middle finger MPJ and metacarpals. Right leg pain (Chronic) Knee effusion, right (Chronic) Tracheostomy dependent (Acute) dr eden- due to severe sleep apnea Vitamin D deficiency (Chronic) Onset Date: Unknown NOEL (obstructive sleep apnea) (Chronic) Onset Date: Unknown Hyperparathyroidism (Chronic) Onset Date: Unknown Hyperlipidemia (Chronic) Onset Date: Unknown GERD (gastroesophageal reflux disease) (Chronic) Onset Date: Unknown Hypertension (Chronic) Onset Date: Unknown Depression (Chronic) Onset Date: Unknown Diabetes (Chronic) Onset Date: Unknown Chronic kidney disease (Chronic) Onset Date: Unknown stage 4 Chronic back pain (Chronic) Onset Date: Unknown Anemia (Chronic) Onset Date: Unknown Dialysis patient (Chronic) Onset Date: Unknown 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 Morbid obesity Onset Date: Unknown Pickwickian syndrome Onset Date: Unknown Rhabdomyolysis Onset Date: Unknown Benign neoplasm Onset Date: Unknown Hernia Onset Date: Unknown Irregular heart beat Onset Date: Unknown Knee joint effusion Onset Date: Unknown Metabolic encephalopathy Onset Date: Unknown Pancreatitis Onset Date: Unknown Surgical History: Surgical History (Last Reviewed 02/19/20 @ 16:46 by Bia Matamoros MD) S/P knee replacement Onset Date: Unknown bilateral S/P coronary artery stent placement Onset Date: Unknown S/P epidural steroid injection Onset Date: Unknown S/P revision of total knee Onset Date: 01/31/18 right knee-U of I Family History: Family History (Last Reviewed 01/25/20 @ 08:50 by Mamta Kirby CMA) Father Natural with unknown cause Mother Natural with unknown cause Sister Cancer unknown Social History: (Last Updated 01/25/20 @ 16:44 by Bassem Menezes DO) Social History: assisted: No Marital status: Single household members: children current occupational status: retired Highest education level completed: 8th grade Service: No Tobacco: Smoking Status: Former smoker Alcohol: alcohol intake: former Substance Use: substance use type: does not use Dietary Habits: caffeine: Yes Physical Exam - Physical Exam General Appearance: Present: wd/wn, alert, no apparent distress Head Exam: Present: normal inspection Eye Exam: Normal inspection: bilateral Ears, Nose, Throat: Present: normal pharynx Neck: Present: other - trach with small amount of yellow sputum Respiratory: Present: no respiratory distress, no accessory muscle use, rales - both bases Cardiovascular/Chest: Present: tachycardia Gastrointestinal/Abdominal: Present: normal bowel sounds, nontender, nondistended, soft Extremity Exam: Present: pedal edema, other - right knee swollen but not tender Neurological Exam: Present: alert, oriented, normal mood/affect Skin Exam: Present: normal color, warm/dry Progress - Results and Orders Patient's Lab Results:: I have reviewed the patient's lab results. - Vital Signs Patient's Vital Signs:: I have reviewed the patient's vital signs. Vital Signs: Vital Signs 02/19/20 15:47 02/19/20 16:16 Temperature 37.4 C 38.9 C H Pulse Rate 119 H Respiratory Rate 14 Blood Pressure 83/31 L O2 Sat by Pulse Oximetry 99 - EKG EKG #1 EKG: NSR - sinustachycardia EKG read: Interp. by me - X-Ray X-Ray #1 X-Ray: chest - no acute changes Interpretation: Reviewed by me - Progress/Reassessment Chief Complaint: Upper Respiratory Symptoms Progress Note-Subjective: 02/19/20 17:22 discussed with dialysis nurse, finished his treatment today, took off 4533, post dialysis BP 100/66 (but had low BP once during dialysis) BP usually 120-130's systolic he did not have a fever at the beginning of dialysis 02/19/20 18:11 patient meets SIRS criteria with temp, HR but no clear source of infection found (UCS pending) CXR clear, O2 sat 98-100% patient has organ dysfunction with BP<90, which could be also caused by taking large amount of fluids off 02/19/20 19:19 unable to obtain urine 02/19/20 19:38 discussed with umberto Jones to admit for observation for hypotension, fever hold off on antibiotics as no source of infection Departure Clinical Impression: Hypotension Qualifiers: Hypotension type: unspecified hypotension type Qualified Code(s): I95.9 - Hypotension, unspecified Fever Qualifiers: Fever type: unspecified Qualified Code(s): R50.9 - Fever, unspecified - Departure Disposition: Still a patient Condition: Fair
[2020-02-19 16:56] LABS: Hematocrit 36.8 % (42.0-52.0); Hemoglobin 11.8 gm/dL (13.5-18.0); Mean Corpuscular Hemoglobin 33.3 pg (27-31); Mean Corpuscular Hgb Conc 32.1 g/dl (32-36); Mean Platelet Volume 9.9 fl (8-11.3); Neutrophil # 10.4 K/mm3 (1.3-6.0); Neutrophil % 87.5 % (42-75.0); Platelet Count 132 K/mm3 (150-450); Red Blood Count 3.54 M/mm3 (4.7-6.0); Red Cell Distribution Width 14.8 % (11.5-14.0); White Blood Count 11.9 K/mm3 (4.0-10.5)
[2020-02-19] MEDS ORDERED: NORMAL SALINE 250 ML IV ONE (17:08)
[2020-02-19 17:21] LABS: Albumin * 2.6 gm/dl (3.4-5.0); Anion Gap 13.2 mmol/L (6.8-13.8); Bilirubin, Total 0.7 mg/dL (0.0-1.1); Ca. Corrected For Albumin 9.2 mg/dL (8.4-10.2); Calcium * 8.4 mg/dL (7.9-10.9); Carbon Dioxide 30.3 mmol/L (24-32.6); Potassium 4.5 mmol/L (3.4-4.6); Total Protein 7.4 gm/dL (6.2-8.2)
[2020-02-19 17:32] LABS: CRP 15.9 mg/dL (0.0-0.9)
[2020-02-19] MEDS ORDERED: ONDANSETRON HCL/PF 2 MG/ML VIAL IV ONE (18:46)
[2020-02-19] MEDS ORDERED: NALOXONE HCL IN SCH (22:45)
[2020-02-19] MEDS ORDERED: ACETAMINOPHEN 500 MG TABLET PO PRN (22:45)
[2020-02-19] MEDS ORDERED: ONDANSETRON HCL 8 MG TABLET PO PRN (22:45)
[2020-02-19] MEDS ORDERED: ROSUVASTATIN CALCIUM 10 MG TABLET PO SCH (23:30)
[2020-02-19] MEDS: HYDROcodone/ACETAMINOPHEN 1 EACH TABLET PO SCH (23:42)
[2020-02-19] MEDS: DOXYCYCLINE HYCLATE 100 MG TABLET PO SCH (23:42)
[2020-02-19] MEDS: AMITRIPTYLINE HCL 25 MG TABLET PO SCH (23:42)
[2020-02-19] MEDS: DICYCLOMINE HCL 10 MG CAPSULE PO SCH (23:42)
[2020-02-19] MEDS: MORPHINE SULFATE 100 MG TABLET.SA PO SCH (23:42)
[2020-02-19] MEDS: PANTOPRAZOLE SODIUM 20 MG TABLET.DR PO SCH (23:42)
[2020-02-20] MEDS: DOXYCYCLINE HYCLATE 100 MG TABLET PO SCH ×2 (08:39→21:14)
[2020-02-20] MEDS: DICYCLOMINE HCL 10 MG CAPSULE PO SCH (08:40)
[2020-02-20] MEDS: HYDROcodone/ACETAMINOPHEN 1 EACH TABLET PO SCH ×4 (08:40→21:15)
[2020-02-20 08:43] LABS: Albumin * 2.1 gm/dl (3.4-5.0); Anion Gap 14.6 mmol/L (6.8-13.8); BUN/Creatinine Ratio 4.9 (9.0-21.6); Bilirubin, Total 0.4 mg/dL (0.0-1.1); Ca. Corrected For Albumin 9.8 mg/dL (8.4-10.2); Calcium * 8.6 mg/dL (7.9-10.9); Carbon Dioxide 24.8 mmol/L (24-32.6); Potassium 5.4 mmol/L (3.4-4.6); Total Protein 6.1 gm/dL (6.2-8.2)
[2020-02-20 09:03] LABS: Hematocrit 33.8 % (42.0-52.0); Hemoglobin 10.8 gm/dL (13.5-18.0); Mean Corpuscular Hemoglobin 33.5 pg (27-31); Mean Platelet Volume 9.7 fl (8-11.3); Neutrophil # 7.1 K/mm3 (1.3-6.0); Neutrophil % 78.4 % (42-75.0); Platelet Count 114 K/mm3 (150-450); Red Blood Count 3.22 M/mm3 (4.7-6.0); Red Cell Distribution Width 14.9 % (11.5-14.0)
[2020-02-20] MEDS: MORPHINE SULFATE 100 MG TABLET.SA PO SCH (12:59)
[2020-02-20] MEDS ORDERED: MORPHINE SULFATE 30 MG TABLET.SA PO ONE (13:00)
[2020-02-20] MEDS ORDERED: MORPHINE SULFATE 60 MG TABLET.SA PO ONE (13:00)
[2020-02-20] MEDS: DICYCLOMINE HCL 20 MG TABLET PO SCH ×3 (13:06→21:15)
[2020-02-20] MEDS: MORPHINE SULFATE PO SCH ×2 (13:06)
[2020-02-20] MEDS ORDERED: ROSUVASTATIN CALCIUM 20 MG TABLET PO SCH (21:00)
[2020-02-20] MEDS: PANTOPRAZOLE SODIUM 20 MG TABLET.DR PO SCH (21:15)
[2020-02-20] MEDS: AMITRIPTYLINE HCL 25 MG TABLET PO SCH (21:15)
--- NOTE | 2020-02-20 23:45 | HP ---
Chief Complaint - Chief Complaint Date of Service: 02/20/20 Time of Service: 07:45 Chief Complaint: Fever and weakness History of Present Illness: Bob is a 74 yo male with chronic end stage renal disease on chronic dialysis M, W, and F. He has a chronic trach secondary to obstructive sleep apnea, and was recently treated for pneumonia. He was having dialysis on wednesday and reportedly had 4liter of fluid removed. He also reported a fever and shortness of breath and presented to the [facility] ER for further evaluation. He had a chest xray which was negative for acute abnormality. He was negative for influenza and had a Covid19 swab obtained and pending. He is anuric to give a urine sample for testing. He was noted to be hypotensive in the ER and was given 250ml of fluids. Blood pressure improved. Medical History (Last Reviewed 02/19/20 @ 20:43 by Lis Gar RN) Chronic osteomyelitis (Chronic) End stage renal disease (Chronic) Nausea (Chronic) Anorexia (Acute) past 3 weeks Chronic kidney disease, stage V (very severe) (Chronic) Chronic pain syndrome (Chronic) Constipation due to opioid therapy (Chronic) Muscle strain, hand (Acute) Sprain of the [place]umb[place] between the index and middle finger MPJ and metacarpals. Right leg pain (Chronic) Knee effusion, right (Chronic) Tracheostomy dependent (Acute) dr eden- due to severe sleep apnea Vitamin D deficiency (Chronic) Onset Date: Unknown NOEL (obstructive sleep apnea) (Chronic) Onset Date: Unknown Hyperparathyroidism (Chronic) Onset Date: Unknown Hyperlipidemia (Chronic) Onset Date: Unknown GERD (gastroesophageal reflux disease) (Chronic) Onset Date: Unknown Hypertension (Chronic) Onset Date: Unknown Depression (Chronic) Onset Date: Unknown Diabetes (Chronic) Onset Date: Unknown Chronic kidney disease (Chronic) Onset Date: Unknown stage 4 Chronic back pain (Chronic) Onset Date: Unknown Anemia (Chronic) Onset Date: Unknown Dialysis patient (Chronic) Onset Date: Unknown 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 Morbid obesity Onset Date: Unknown Pickwickian syndrome Onset Date: Unknown Rhabdomyolysis Onset Date: Unknown Benign neoplasm Onset Date: Unknown Hernia Onset Date: Unknown Irregular heart beat Onset Date: Unknown Knee joint effusion Onset Date: Unknown Metabolic encephalopathy Onset Date: Unknown Pancreatitis Onset Date: Unknown Surgical History: Surgical History (Last Reviewed 02/19/20 @ 20:44 by Lis Gar RN) S/P knee replacement Onset Date: Unknown bilateral S/P coronary artery stent placement Onset Date: Unknown S/P epidural steroid injection Onset Date: Unknown S/P revision of total knee Onset Date: 01/31/18 right knee-U of I Family History: Family History (Last Reviewed 02/19/20 @ 20:44 by Lis Gar RN) Father Natural with unknown cause Mother Natural with unknown cause Sister Cancer unknown Social History: (Last Reviewed 02/19/20 @ 20:44 by Lis Gar RN) Social History: usp: No Marital status: Single household members: children current occupational status: retired Highest education level completed: 8th grade Service: No Tobacco: Smoking Status: Former smoker Alcohol: alcohol intake: former Substance Use: substance use type: does not use Dietary Habits: caffeine: Yes Review Of Systems (GEN) - Review of Systems Generalized/Overall Review: Present: Weakness, Fever. Absent: Chills EENTM: Absent: Eye Pain, Blurred Vision Respiratory: Present: Cough, Shortness of Breath Cardiac: Absent: Chest Pain, Edema Abdominal: Absent: Nausea, Vomiting Genitourinary: Present: Anuria Neurological: Absent: Headache, Numbness Skin: Present: No Symptoms Reported Immunizations: IMMUNIZATION HX Immunizations Up to Date Yes History of Influenza Vaccine Yes Hx Pneumococcal Vaccination No Allergies/Adverse Reactions: Allergies Allergy/AdvReac Type Severity Reaction Status Date / Time lisinopril [From Zestril] AdvReac Mild COUGH Verified 02/19/20 16:00 Home Medications: HOME MEDICATIONS Acetaminophen 500 mg PO Q6H PRN 08/08/17 [Last Taken 10/08/18 15:00] Doxycycline Hyclate [Vibratab] 100 mg PO BID 10/08/18 [Last Taken 06/21/19] Satellite Dish Repairer/Grabber 0 .ROUTE .MEDSUPPLY #1 ea 11/23/18 [Last Taken Unknown] cane See Dose Instructions .ROUTE .MEDSUPPLY #1 ea 11/23/18 [Last Taken Unknown] naloxone 4 mg/actuation nasal spray See Rx Instructions .ROUTE .COMPLEX #2 unknown measurement unit code: not specified 01/01/20 [Last Taken Unknown] ondansetron HCl 8 mg tablet 8 mg PO Q8H PRN #10 tab 01/25/20 [Last Taken Unknown] morphine 100 mg tablet,extended release 100 mg PO Q12H #60 tab 02/16/20 [Last Taken Unknown] Amitriptyline HCl [Elavil] 25 mg PO HS 02/19/20 [Last Taken Unknown] Atorvastatin Calcium 40 mg PO HS 02/19/20 [Last Taken Unknown] Dicyclomine HCl 20 mg PO QID 02/19/20 [Last Taken Unknown] HYDROcodone/ACETAMINOPHEN [[place] 10-325 Tablet] See Rx Instructions PO QID 02/19/20 [Last Taken Unknown] amLODIPine BESYLATE [Norvasc] 5 mg PO DAILY 02/19/20 [Last Taken Unknown] omeprazole 10 mg capsule,delayed release 10 mg PO HS #30 cap 02/19/20 [Last Taken Unknown] Exam - Exam Vital Signs: Vital Signs - Last Taken Temp 36.6 C 02/20/20 22:47 Pulse 98 02/20/20 22:47 Resp 18 02/20/20 22:47 BP 140/82 02/20/20 22:47 Pulse Ox 98 02/20/20 22:47 Constitutional: Present: Alert, Oriented x3, Cooperative ENT Exam: Present: hearing grossly normal Eye Exam: bilateral eye: normal inspection Neck: Present: other - chronic trach Respiratory: Present: no respiratory distress, rhonchi Cardiovascular/Chest: Present: regular rate, rhythm, no murmur Peripheral Pulses: radial (R): 2+, radial (L): 2+ Abdomen: Present: Normal bowel sounds, soft, nontender, nondistended Extremity: Present: normal inspection Skin Exam: Present: normal color, warm/dry, no cyanosis Appearance: Present: appropriate appearance, appropriate insight Eye contact: Present: cooperative, good eye contact, normal speech Diagnostic Studies: Abnormal Lab Results 02/20/20 02/20/20 Range/Units 08:16 08:16 RBC 3.22 L (4.7-6.0) M/mm3 Hgb 10.8 L (13.5-18.0) gm/dL Hct 33.8 L (42.0-52.0) % MCV 105.0 H (78-100) fl MCH 33.5 H (27-31) pg RDW 14.9 H (11.5-14.0) % Plt Count 114 L (150-450) K/mm3 Neutrophils % 78.4 H (42-75.0) % Lymphocytes % 12.8 L (20-51) % Neutrophils # 7.1 H (1.3-6.0) K/mm3 Lymphocytes # 1.16 L (1.5-3.5) k/mm3 Potassium 5.4 H (3.4-4.6) mmol/L Anion Gap 14.6 H (6.8-13.8) mmol/L BUN 33 H D (6-23) mg/dL Creatinine 6.76 H D (0.4-1.4) mg/dL Est GFR (Non-Af Amer) 10 L D (60-130) mL/min BUN/Creatinine Ratio 4.9 L (9.0-21.6) Total Protein 6.1 L (6.2-8.2) gm/dL Albumin 2.1 L (3.4-5.0) gm/dl Microbiology 02/19/20 17:45 Blood Culture - Preliminary Blood NO GROWTH 24 HOURS 02/19/20 16:45 Blood Culture - Preliminary Blood NO GROWTH 24 HOURS Laboratory Results WBC 9.0 K/mm3 (4.0-10.5) D 02/20/20 08:16 RBC 3.22 M/mm3 (4.7-6.0) L 02/20/20 08:16 Hgb 10.8 gm/dL (13.5-18.0) L 02/20/20 08:16 Hct 33.8 % (42.0-52.0) L 02/20/20 08:16 MCV 105.0 fl (78-100) H 02/20/20 08:16 MCH 33.5 pg (27-31) H 02/20/20 08:16 MCHC 32.0 g/dl (32-36) 02/20/20 08:16 RDW 14.9 % (11.5-14.0) H 02/20/20 08:16 Plt Count 114 K/mm3 (150-450) L 02/20/20 08:16 MPV 9.7 fl (8-11.3) 02/20/20 08:16 Immature Gran % (Auto) 0.30 % (0.001-0.429) 02/20/20 08:16 Immature Gran # (Auto) 0.03 K/mm3 (0.000-0.0310) 02/20/20 08:16 Neutrophils % 78.4 % (42-75.0) H 02/20/20 08:16 Lymphocytes % 12.8 % (20-51) L 02/20/20 08:16 Monocytes % 7.6 % (0.0-9) 02/20/20 08:16 Eosinophils % 0.8 % (0.0-3.0) 02/20/20 08:16 Basophils % 0.1 % (0.0-1.0) 02/20/20 08:16 Nucleated RBC % 0.0 k/mm3 (0-1) 02/20/20 08:16 Neutrophils # 7.1 K/mm3 (1.3-6.0) H 02/20/20 08:16 Lymphocytes # 1.16 k/mm3 (1.5-3.5) L 02/20/20 08:16 Monocytes # 0.7 k/mm3 (0.0-1.0) 02/20/20 08:16 Eosinophils # 0.1 k/mm3 (0.0-0.7) 02/20/20 08:16 Absolute Basophils 0.0 k/mm3 (0.0-0.1) 02/20/20 08:16 Sodium 138 mmol/L (132-142) 02/20/20 08:16 Plasma Sodium 138 mmol/L (130-142) 02/20/20 08:16 Potassium 5.4 mmol/L (3.4-4.6) H 02/20/20 08:16 Chloride 104 mmol/L (97-106) 02/20/20 08:16 Carbon Dioxide 24.8 mmol/L (24-32.6) 02/20/20 08:16 Anion Gap 14.6 mmol/L (6.8-13.8) H 02/20/20 08:16 BUN 33 mg/dL (6-23) H D 02/20/20 08:16 Creatinine 6.76 mg/dL (0.4-1.4) H D 02/20/20 08:16 Est GFR (Non-Af Amer) 10 mL/min (60-130) L D 02/20/20 08:16 BUN/Creatinine Ratio 4.9 (9.0-21.6) L 02/20/20 08:16 Random Glucose 92 mg/dL (70-110) 02/20/20 08:16 Lactic Acid, Venous 2.0 mmol/L (0.4-2.0) 02/19/20 19:50 Calcium 8.6 mg/dL (7.9-10.9) 02/20/20 08:16 Calcium Adj for Albumin 9.8 mg/dL (8.4-10.2) 02/20/20 08:16 Total Bilirubin 0.4 mg/dL (0.0-1.1) 02/20/20 08:16 AST 38 U/L (0-48) 02/20/20 08:16 ALT 22 U/L (19-67) 02/20/20 08:16 Alkaline Phosphatase 142 U/L (50-170) 02/20/20 08:16 C-Reactive Prot, Quant 15.9 mg/dL (0.0-0.9) H 02/19/20 16:45 Total Protein 6.1 gm/dL (6.2-8.2) L 02/20/20 08:16 Albumin 2.1 gm/dl (3.4-5.0) L 02/20/20 08:16 Procalcitonin 1.01 ng/mL (0.05-0.50) H 02/19/20 16:45 Influenza Type A Ag Negative (NEGATIVE) 02/19/20 16:45 Influenza Type B Ag Negative (NEGATIVE) 02/19/20 16:45 Assessment/Plan - Narrative Narrative: Collins is a 74 yo with: 1) Episode of hypotension - I believe this is secondary to dialysis today as a significant amount of fluid was removed today. This does not appear to be secondary to shock. He was given a gentle bolus in the ER and blood pressure improved and remains normal. Will continue to monitor. He is also on chronic pain medications, will monitor to see if these are related. 2) Fever of unknown etiology. Chest xray normal, influenza negative, Covid19 pending...will place in negative pressure room until test returns. I do not have a source of infection so I will not treat with antibiotics at this time. Will monitor for further fever, he has not had any since admission. 3) End stage renal with dialysis. Unable to do dialysis here, but he just had his treatment on wednesday and not due until Wed. Will plan to discharge by Wed if blood pressure improves and remains stable and no further fever or signs of infection. - Assessment/Plan (1) Hypotension Problem: Acute Qualifiers: Hypotension type: unspecified hypotension type Qualified Code(s): I95.9 - Hypotension, unspecified (2) Fever Problem: Acute Qualifiers: Fever type: unspecified Qualified Code(s): R50.9 - Fever, unspecified (3) End stage renal disease Problem: Chronic
[2020-02-21] MEDS ORDERED: MORPHINE SULFATE 30 MG TABLET.SA PO ONE (00:54)
[2020-02-21] MEDS ORDERED: MORPHINE SULFATE 60 MG TABLET.SA PO ONE (00:54)
[2020-02-21] MEDS: MORPHINE SULFATE PO SCH ×2 (01:00)
[2020-02-21 06:34] LABS: Hematocrit 30.4 % (42.0-52.0); Hemoglobin 9.8 gm/dL (13.5-18.0); Mean Cell Volume 102.7 fl (78-100); Mean Corpuscular Hemoglobin 33.1 pg (27-31); Mean Corpuscular Hgb Conc 32.2 g/dl (32-36); Mean Platelet Volume 9.3 fl (8-11.3); Neutrophil # 4.4 K/mm3 (1.3-6.0); Neutrophil % 67.8 % (42-75.0); Platelet Count 120 K/mm3 (150-450); Red Blood Count 2.96 M/mm3 (4.7-6.0); Red Cell Distribution Width 14.6 % (11.5-14.0); White Blood Count 6.5 K/mm3 (4.0-10.5)
[2020-02-21 06:48] LABS: Anion Gap 12.2 mmol/L (6.8-13.8); BUN/Creatinine Ratio 6.1 (9.0-21.6); Bilirubin, Total 0.3 mg/dL (0.0-1.1); Ca. Corrected For Albumin 9.4 mg/dL (8.4-10.2); Calcium * 8.1 mg/dL (7.9-10.9); Carbon Dioxide 27.7 mmol/L (24-32.6); Potassium 4.9 mmol/L (3.4-4.6)
[2020-02-21] MEDS: HYDROcodone/ACETAMINOPHEN 1 EACH TABLET PO SCH (08:20)
[2020-02-21] MEDS: DICYCLOMINE HCL 20 MG TABLET PO SCH (08:20)
[2020-02-21] MEDS: DOXYCYCLINE HYCLATE 100 MG TABLET PO SCH (08:21)
--- NOTE | 2020-02-21 08:43 | DS ---
(1) Hypotension Problem: Resolved Qualifiers: Hypotension type: unspecified hypotension type Qualified Code(s): I95.9 - Hypotension, unspecified (2) Fever Problem: Resolved Qualifiers: Fever type: unspecified Qualified Code(s): R50.9 - Fever, unspecified (3) End stage renal disease Problem: Chronic Date of Discharge:: 02/21/20 Hospital Course: Bob is a 74yo male admitted due to hypotension and fever. He had just had dialysis but infectious etiology was evaluated. He had negative chest xray, influenza swab, and covid testing. He was given a 250ml fluid bolus and blood pressure improved and remained stable since. He did not have any fever during hospital course. He was a very high risk patient due to end stage renal disease so he was monitored until his COVID testing returned negative. His vitals are normal. I believe his hypotension may have been secondary to having too much fluid removed during dialysis. He will be discharged and will have his routine outpatient dialysis today. No changes in medications. He will follow up with Dr. Menezes. Procedures Performed: none Results and Findings: Pending Mircobiology Results 02/19/20 17:45 Blood Blood Culture - Preliminary NO GROWTH 24 HOURS 02/19/20 16:45 Blood Blood Culture - Preliminary NO GROWTH 24 HOURS Lab Pending Results 02/19/20 16:45: WBC 11.9 H, RBC 3.54 L, Hgb 11.8 L, Hct 36.8 L, MCV 104.0 H, MCH 33.3 H, MCHC 32.1, RDW 14.8 H, Plt Count 132 L, MPV 9.9, Immature Gran % (Auto) 0.70 H, Immature Gran # (Auto) 0.08 H, Neutrophils % 87.5 H, Lymphocytes % 4.1 L, Monocytes % 7.5, Eosinophils % 0.1, Basophils % 0.1, Nucleated RBC % 0.0, Neutrophils # 10.4 H, Lymphocytes # 0.49 L, Monocytes # 0.9, Eosinophils # 0.0, Absolute Basophils 0.0 02/19/20 16:45: Sodium 139, Plasma Sodium 139, Potassium 4.5, Chloride 100, Carbon Dioxide 30.3, Anion Gap 13.2, BUN 20, Creatinine 4.97 H D, Est GFR (Non- Af Amer) 15 L D, BUN/Creatinine Ratio 4.0 L, Random Glucose 98, Calcium 8.4, Calcium Adj for Albumin 9.2, Total Bilirubin 0.7, AST 28, ALT 20, Alkaline Phosphatase 159, C-Reactive Prot, Quant 15.9 H, Total Protein 7.4, Albumin 2.6 L 02/19/20 16:45: Lactic Acid, Venous 3.1 H* 02/19/20 16:45: Procalcitonin 1.01 H 02/19/20 16:45: SARS-CoV-2 (PCR) Not detected 02/19/20 16:45: Influenza Type A Ag Negative, Influenza Type B Ag Negative 02/19/20 19:50: Lactic Acid, Venous 2.0 02/20/20 08:16: WBC 9.0 D, RBC 3.22 L, Hgb 10.8 L, Hct 33.8 L, MCV 105.0 H, MCH 33.5 H, MCHC 32.0, RDW 14.9 H, Plt Count 114 L, MPV 9.7, Immature Gran % (Auto) 0.30, Immature Gran # (Auto) 0.03, Neutrophils % 78.4 H, Lymphocytes % 12.8 L, Monocytes % 7.6, Eosinophils % 0.8, Basophils % 0.1, Nucleated RBC % 0.0, Neutrophils # 7.1 H, Lymphocytes # 1.16 L, Monocytes # 0.7, Eosinophils # 0.1, Absolute Basophils 0.0 02/20/20 08:16: Sodium 138, Plasma Sodium 138, Potassium 5.4 H, Chloride 104, Carbon Dioxide 24.8, Anion Gap 14.6 H, BUN 33 H D, Creatinine 6.76 H D, Est GFR (Non-Af Amer) 10 L D, BUN/Creatinine Ratio 4.9 L, Random Glucose 92, Calcium 8.6, Calcium Adj for Albumin 9.8, Total Bilirubin 0.4, AST 38, ALT 22, Alkaline Phosphatase 142, Total Protein 6.1 L, Albumin 2.1 L 02/21/20 06:31: WBC 6.5 D, RBC 2.96 L, Hgb 9.8 L, Hct 30.4 L, MCV 102.7 H, MCH 33.1 H, MCHC 32.2, RDW 14.6 H, Plt Count 120 L, MPV 9.3, Immature Gran % (Auto) 0.30, Immature Gran # (Auto) 0.02, Neutrophils % 67.8, Lymphocytes % 19.8 L, Monocytes % 9.7 H, Eosinophils % 2.2, Basophils % 0.2, Nucleated RBC % 0.0, Neutrophils # 4.4, Lymphocytes # 1.28 L, Monocytes # 0.6, Eosinophils # 0.1, Absolute Basophils 0.0 02/21/20 06:31: Sodium 135, Plasma Sodium 135, Potassium 4.9 H, Chloride 100, Carbon Dioxide 27.7, Anion Gap 12.2, BUN 53 H D, Creatinine 8.65 H D, Est GFR (Non-Af Amer) 8 L, BUN/Creatinine Ratio 6.1 L, Random Glucose 91, Calcium 8.1, Calcium Adj for Albumin 9.4, Total Bilirubin 0.3, AST 82 H, ALT 49, Alkaline Phosphatase 164, Total Protein 6.0 L, Albumin 2.0 L Discharge Location: Home Disposition: Home self-care Condition: Fair Discharge Activity: Activity as tolerated Discharge Diet: Renal Failure Referrals: Bassem Menezes DO [Primary Care Provider] - (may have telephone or video follow up with Dr. Menezes as needed.) Problem Oriented Discharge Instructions to Patient/Family: Hypotension, [id number] Additional Patient Instructions (free text): Will be a TCM follow up appointment. Complete Home Medications List: Complete Home Medication List: Acetaminophen 500 mg PO Q6H PRN 08/08/17 Doxycycline Hyclate [Vibratab] 100 mg PO BID 10/08/18 Statistics Intern/Grabber 0 .ROUTE .MEDSUPPLY #1 ea 11/23/18 cane See Dose Instructions .ROUTE .MEDSUPPLY #1 ea 11/23/18 naloxone 4 mg/actuation nasal spray See Rx Instructions .ROUTE .COMPLEX #2 unknown measurement unit code: not specified 01/01/20 ondansetron HCl 8 mg tablet 8 mg PO Q8H PRN #10 tab 01/25/20 morphine 100 mg tablet,extended release 100 mg PO Q12H #60 tab 02/16/20 Amitriptyline HCl [Elavil] 25 mg PO HS 02/19/20 Atorvastatin Calcium 40 mg PO HS 02/19/20 Dicyclomine HCl 20 mg PO QID 02/19/20 HYDROcodone/ACETAMINOPHEN [[place] 10-325 Tablet] See Rx Instructions PO QID 02/19/20 amLODIPine BESYLATE [Norvasc] 5 mg PO DAILY 02/19/20 omeprazole 10 mg capsule,delayed release 10 mg PO HS #30 cap 02/19/20 Forms: Patient Portal Registration
[2020-02-21 09:23] VITALS: BP 126/81
== END 2020-02-21 09:57 | disposition home or self-care (01) ==
LOC: ER 15:32 → MS 15:32
PROVIDERS: ADMIT Family Medicine; ATTEND Family Medicine
DX: R50.9 Fever, unspecified; I95.3 Hypotension of hemodialysis; Z93.0 Tracheostomy status; E11.22 Type 2 diabetes mellitus with diabetic chronic kidney disease; N18.6 End stage renal disease; Z11.59 Encounter for screening for other viral diseases; Z87.891 Personal history of nicotine dependence; Z99.2 Dependence on renal dialysis; J44.9 Chronic obstructive pulmonary disease, unspecified; I12.0 Hypertensive chronic kidney disease with stage 5 chronic kidney disease or end stage renal disease
CPT/HCPCS: 36415; 71010; 71045; 80053; 83605; 84145; 85025; 86140; 87040; 87400; 87449; 93005; 96361; 96374; 99285; G0378; J2405